=== PATIENT | female | born 1945 | race Caucasian/White ===

== ENCOUNTER 2017-10-31 11:22 | Emergency (ER) | payer OTHER, MEDICARE ==
[~2017-10-31] VITALS: Ht 160 cm; Wt 90.7 kg
[~2017-10-31 11:22] MED LIST: ABILIFY 15MG15 MG PO; ABILIFY10 M1 PO; ADVAIR 250-501 EACH INH; ALBUTEROL2.5 MG/3 M INH/SOL; ALIGN4 MG PO; AMITIZA8 MC1 PO; AMITIZA8 MCG PO; ASPIRIN CHILDRE81 MG PO; BUPROPION HYDR150 M1 PO; CALTRATE 600 +1 EACH PO; CARAFATE1 G1 PO; CLARITIN10 M1 PO; CLONAZEPAM0.5 MG PO; DILAUDID2 M1 PO; DULERA 200 MCG/13 GM INH; FAMILY PHARMAC325 MG PO; FLEXERIL 5MG TAB5 MG PO; GABAPENTIN300 MG PO; HYDROCODON-ACETAMINO PO; IRON SUPPLEMEN325 MG PO; LAMICTAL200 M1 PO; LEXAPRO 10MG10 MG PO; LIORESAL 10MG T10 MG PO; METOPROLOL SUCC50 MG PO; METOPROLOL TART25 M1 PO; NASONEX17 GM NASB; NEXIUM 40MG40 MG PO; NORCO 5-325 TA1 EACH PO; NYSTATIN100000 UNI PO; OS CAL PO; PANTOPRAZOLE SO40 MG PO; PATADAY 2.5 ML2.5 ML OPH; PERCOCET 325 MG1 TA2 PO; PERIDEX473 ML PO; PERIOGARD 473473 ML PO; PRAVASTATIN SOD40 MG PO; PROAIR HFA8.5 GM INH; SPIRIVA18 MCG INH; SUCRALFATE1 GM PO; SYMBICORT 160/41 PUF INH; TAMSULOSIN HCL0.4 M1 PO; TRAVATAN Z5 ML OD; TRAZODONE HCL100 MG PO; VALSARTAN80 M1 PO; VESICARE 5MG5 MG PO; VITAB121000 PO; VOLTAREN100 GM TOP; VSL#3 PACKET1 EACH PO
[2017-10-31 12:33] LABS: ABSOLUTE BASOPHIL COUNT 0 /CUMM (0.0-0.2); ABSOLUTE EOSINOPHIL COUNT 0.2 /CUMM (0.0-0.7); ABSOLUTE GRANULOCYTE CT 10.9 /CUMM (1.4-6.5); ABSOLUTE MONOCYTE COUNT 0.2 /CUMM (0.10-0.60); BASOPHIL % 0.1 % (0.0-2.0); EOSINOPHIL % 1.3 % (0-5); GRANULOCYTE % 88.9 % (42.2-75.2); HEMATOCRIT 31.4 % (37-47); MEAN CORPUSCULAR HGB CONC 33.1 G/DL (33.0-37.0); MEAN CORPUSCULAR VOLUME 84.6 FL (81.0-99.0); MEAN PLATELET VOLUME 6.6 FL (7.4-10.4); PLATELET COUNT 329 /CUMM (130-400); RED BLOOD CELL CT 3.71 /CUMM (4.20-5.40); WHITE BLOOD CELL COUNT 12.3 /CUMM (4.8-10.8)
--- NOTE | 2017-10-31 12:57 | ED INFLUENZA/URI COMPLAINT ---
History of Present Illness General Chief Complaint: General Adult Stated Complaint: SIB DR CHAVES FOR CHEST XRAY AND BLOOD WORK Source: patient, family, old records Exam Limitations: no limitations Vital Signs & Intake/Output Vital Signs & Intake/Output Vital Signs Date Time Temp Pulse Resp B/P B/P Pulse O2 O2 Flow FiO2 Mean Ox Delivery Rate 10/31 1307 95 Nasal 2.0L Cannula 10/31 1248 Nasal 2.0L Cannula 10/31 1129 98.3 75 16 144/77 95 Nasal 2.0L Cannula Allergies Coded Allergies: Penicillins (RASH 01/17/16) aspirin (UNKNOWN 01/17/16) cephalexin (From KEFLEX) (UNKNOWN 01/17/16) codeine (UNKNOWN 01/17/16) latex (RASH 01/17/16) nabumetone (UNKNOWN 01/17/16) Uncoded Allergies: HORSE MEAT (Severe, HIVES 02/03/12) Reconcile Medications Albuterol Sulfate 2.5 MG/3 ML VIAL.NEB 1 Vial INH/ROCIO Q6H PRN SOB/WHEEZE ( Reported) Albuterol Sulfate (Proair Hfa) 8.5 GM HFA.AER.AD 2 PUF INH Q4H PRN COPD ( Reported) Aripiprazole (Abilify) 10 MG TABLET 1 TAB PO DAILY MENTAL HEALTH (Reported) Aspirin (Children's Aspirin) 81 MG TAB.CHEW 1 TAB PO DAILY HEART HEALTH ( Reported) Calcium Carbonate/Vitamin D3 (Caltrate 600 + D Tablet) 1 EACH TABLET 1 TAB PO BID SUPPLEMENT (Reported) Chlorhexidine Gluconate (Peridex) 473 ML MOUTHWASH DENTITION (Reported) Ciprofloxacin HCl (Cipro) 250 MG TABLET 1 TAB PO BID bronchitis Cyanocobalamin (Vitamin B-12) 1,000 MCG TABLET 1 TAB PO DAILY V (Reported) Diclofenac Sodium (Voltaren) 100 GM GEL..GRAM. 1 GM TOP 4 TIMES/DAY JOINTS OF HANDS (Reported) apply to affected area(s) Escitalopram Oxalate (Lexapro 10MG) 10 MG TABLET 1 TAB PO DAILY MENTAL HEALTH (Reported) Ferrous Sulfate (Iron Supplement) 325 MG TABLET 1 TAB PO DAILY SUPPLEMENT ( Reported) Fluticasone/Salmeterol (Advair 250-50 Diskus) 1 EACH BLST.W.DEV 1 PUF INH BID RESPIRATORY (Reported) Gabapentin 300 MG CAPSULE 300 MG PO BID MENTAL HEALTH (Reported) Guaifenesin/Dextromethorphan (Robitussin Cough-Chest Dm Liq) 100 MG-5 MG/5 ML LIQUID 5-10 ML PO Q6P PRN cough Hydrocodone/Acetaminophen ([place] 5-325 Tablet) 1 EACH TABLET 1 TAB PO BID PAIN (Reported) Hydrocodone/Acetaminophen ([place] 5-325 Tablet) 1 EACH TABLET 1-2 TAB PO Q6P PRN PAIN Hydromorphone HCl (Dilaudid) 2 MG TABLET 1 TAB PO BIDP PRN RIB FX Lactobac #2-S. Therm-Bifido #1 (Vsl#3 Packet) 1 EACH PACKET 1 PAC PO DAILY CALORIC AGENT (Reported) Lamotrigine (Lamictal) 200 MG TABLET 1 TAB PO BID ANTICONVULSANT (Reported) Loratadine (Claritin) 10 MG TABLET 1 TAB PO DAILY ALLERGIES (Reported) Lubiprostone (Amitiza) 8 MCG CAPSULE 1 CAP PO BID GI (Reported) Metoprolol Tartrate 25 MG TABLET 1 TAB PO BID HEART/BP (Reported) Mometasone Furoate (Nasonex) 17 GM SPRAY.PUMP 2 SPRAY NASB QPM NASAL CONGESTION (Reported) Mometasone/Formoterol (Dulera 200 Mcg/5 Mcg Inhaler) 13 GM HFA.AER.AD 2 PUF INH BID RESPIRATORY (Reported) Nystatin 100,000 UNIT/1 ML ORAL.SUSP 5 ML PO 4 TIMES/DAY POLYENES (Reported) Pantoprazole Sodium 40 MG TABLET.DR 40 MG PO DAILY GERD (Reported) Pravastatin Sodium 40 MG TABLET 40 MG PO DAILY CHOL (Reported) Prednisone 20 MG TABLET 1 TAB PO BID copd exacerbation Sucralfate (Carafate) 1 GM TABLET 1 TAB PO TID GI (Reported) Tamsulosin HCl 0.4 MG CAP.ER.24H 1 CAP PO QPM OVERACTIVE BLADDER (Reported) Tiotropium [place] (Spiriva) 18 MCG CAP.W.DEV 1 CAP INH DAILY COPD (Reported) Travoprost (Travatan Z) 5 ML DROPS 1 GTT OD QPM RIGHT EYE (Reported) Valsartan 80 MG TABLET 1 TAB PO DAILY BP (Reported) Triage Note: 72 REPORTS COUGH WITH GREEN PHLEGM, CONGESTION, AND INTERMITTENT HEADACHES. HX LUNG CA AND STATES SHE WAS ADVISED TO GET AN XRAY ANYTIME SHE GETS SICK. BASELINE 2L OXYGEN, SAT 95%. AFEBRILE Triage Nurses Notes Reviewed? yes Onset: Last week Duration: day(s):, continues in ED, getting worse Timing: recent history Severity: moderate Prior Episodes/Possible Cause: illness exposure Modifying Factors: Improves With: rest. Worsens With: movement. Associated Symptoms: cough, nasal congestion, shortness of breath, sore throat, wheezing LMP (ages 10-50): post menopausal : No Patient currently breastfeeds: No HPI: Several days prior to admission patient complains of productive cough of green sputum nasal congestion increasing shortness of breath with wheezing. She denies fever chills nausea vomiting diarrhea chest pain headache dysuria rash bleeding. Past History Travel History Traveled to [place] past 21 day No Medical History Any Pertinent Medical History? see below for history Neurological: migraine EENT: sinusitis Cardiovascular: myocardial infarction Respiratory: asthma, LUNG CA Gastrointestinal: irritable bowel syndrome Hepatic: NONE Renal: NONE Musculoskeletal: R KNEE REPLACEMENT Psychiatric: bipolar disease Endocrine: diabetes Cancer(s): L LUNG Tetanus Vaccine: 01/17/16 Surgical History Surgical History: non-contributory Psychosocial History Who do you live with Significant Other Services at Home Nursing What is your primary language Vietnamese Tobacco Use: Quit >30 days ago Family History Hx Contributory? No Review of Systems Review of Systems Constitutional: Reports: see HPI. EENTM: Reports: see HPI, nasal congestion, throat pain. Respiratory: Reports: see HPI, cough, short of breath, sputum production, wheezing. Cardiovascular: Reports: no symptoms. GI: Reports: no symptoms. Genitourinary: Reports: no symptoms. Musculoskeletal: Reports: no symptoms. Skin: Reports: no symptoms. Neurological/Psychological: Reports: no symptoms. Hematologic/Endocrine: Reports: no symptoms. Immunologic/Allergic: Reports: no symptoms. All Other Systems: Reviewed and Negative Physical Exam Physical Exam General Appearance: well developed/nourished, alert, awake, anxious, moderate distress, obese Head: atraumatic, normal appearance Eyes: Bilateral: normal appearance, PERRL, EOMI. Ears, Nose, Throat: moist mucous membrane, nasal congestion, nasal drainage, pharyngeal erythema Neck: normal inspection, supple, full range of motion, trachea midline, lymphadenopathy (R), lymphadenopathy (L) Respiratory: chest non-tender, decreased breath sounds, wheezing, respiratory distress (Mild) Cardiovascular: regular rate/rhythm, normal peripheral pulses, norml femoral pulses equa Peripheral Pulses: 4+ carotid (R), 4+ carotid (L) Gastrointestinal: normal bowel sounds, soft, non-tender, no organomegaly Back: normal inspection, normal range of motion, no vertebral tenderness Extremities: normal inspection, normal capillary refill, normal range of motion, no edema, no ligament instability Neurologic/Psych: no motor/sensory deficits, awake, alert, oriented x 3, normal gait, normal mood/affect, social media editor II-XII nml as tested Reflexes: 2+: bicep (R), bicep (L). Skin: intact, normal color, warm/dry Lymphatic: adenopathy Core Measures Sepsis Present: No Sepsis Focused Exam Completed? No Progress Differential Diagnosis: influenza, pneumonia, sinusitis Plan of Care: Orders Procedure Date/time Status TROPONIN LEVEL 10/31 1135 Complete MAGNESIUM 10/31 1135 Complete COMPREHENSIVE METABOLIC PANEL 10/31 1135 Complete CBC WITHOUT DIFFERENTIAL 10/31 113 Complete B-TYPE NATRIURETIC PEP (BNP) 10/31 113 Complete Laboratory Tests 10/31/17 1218: Anion Gap 13, Estimated GFR > 60, BUN/Creatinine Ratio 14.3, Glucose 134 H, Calcium 9.1, Magnesium 2.1, Total Bilirubin 0.3, AST 16, ALT 24, Alkaline Phosphatase 84, Troponin I < 0.01, Kmt-S-Tktygbesdun Pept 870 H, Total Protein 6.7, Albumin 3.7, Globulin 3.0, Albumin/Globulin Ratio 1.2, CBC w Diff MAN DIFF ORDERED, RBC 3.71 L, MCV 84.6, MCH 28.0, MCHC 33.1, RDW 15.0 H, MPV 6.6 L, Gran % 88.9 H, Lymphocytes % 8.0 L, Monocytes % 1.7, Eosinophils % 1.3, Basophils % 0.1, Absolute Granulocytes 10.9 H, Absolute Lymphocytes 1.0 L, Absolute Monocytes 0.2, Absolute Eosinophils 0.2, Absolute Basophils 0, Platelet Estimate ADEQUATE, Hypochromic-Microcytic 1+, Anisocytosis 1+ Diagnostic Imaging: Viewed by Me: Radiology Read. Discussed w/RAD: Radiology Read. CXR Impression: No appreciable change in left upper lobe lesion from most recent exams December 2016. No evidence of pneumonia. Stable enlargement of the cardiac silhouette. Initial ED EKG: none Departure Departure Time of Disposition: 1400 Disposition: HOME OR SELF CARE Condition: Stable Clinical Impression Primary Impression: COPD with acute bronchitis Referrals: Aden Cullen MD (PCP/Family) Departure Forms: Customer Survey General Discharge Information Prescriptions: Current Visit Scripts Prednisone 1 TAB PO BID #10 TAB Ciprofloxacin HCl (Cipro) 1 TAB PO BID #14 TAB Guaifenesin/Dextromethorphan (Robitussin Cough-Chest Dm Liq) 5-10 ML PO Q6P PRN cough #240 ML
--- NOTE | 2017-10-31 13:19 | RADIOLOGY REPORT ---
EXAMINATION: XR CHEST CLINICAL INFORMATION: Cough. Shortness of breath. History of lung cancer. COMPARISON: Previous chest x-rays and chest CT scan December 2016 TECHNIQUE: 2 views of the chest were obtained. FINDINGS: The cardiac silhouette is enlarged but stable. There is no appreciable change in the lesion in the central left upper lobe extending to the hilum from previous exams. The lungs are otherwise clear. No evidence of a pneumonia is seen. There is no pleural effusion. There is a right internal jugular port with tip projecting over the cavoatrial junction. There are degenerative changes of the spine. IMPRESSION: No appreciable change in left upper lobe lesion from most recent exams December 2016. No evidence of pneumonia. Stable enlargement of the cardiac silhouette.
[2017-10-31] MEDS ORDERED: CIPRO250 M1 PO (13:29)
[2017-10-31] MEDS ORDERED: PREDNISONE20 M1 PO (13:29)
[2017-10-31] MEDS ORDERED: ROBITUSSIN COU237 M1 PO (13:30)
[2017-10-31 16:03] VITALS: BP 162/71
== END 2017-10-31 16:18 ==
LOC: ERH 11:22
PROVIDERS: Emergency Medicine
DX: J44.0 Chronic obstructive pulmonary disease with (acute) lower respiratory infection (principal); Z87.891 Personal history of nicotine dependence
CPT/HCPCS: 71046; 96374; 96375; J0744; J2930

== ENCOUNTER 2018-01-30 08:30 | Inpatient (IN) | payer OTHER, MEDICARE ==
[~2018-01-30] VITALS: Ht 162.6 cm; Wt 92.5 kg
[~2018-01-30 08:30] MED LIST changes: +CIPRO250 M1 PO; +PREDNISONE20 M1 PO; +ROBITUSSIN COU237 M1 PO
--- NOTE | 2018-01-30 08:38 | ED DYSPNEA/ASTHMA COMPLAINT ---
History of Present Illness General Chief Complaint: Dyspnea (COPD, CHF, Other) Stated Complaint: RESPITORY DISTRESS Source: patient Exam Limitations: clinical condition Vital Signs & Intake/Output Vital Signs & Intake/Output Vital Signs Date Time Temp Pulse Resp B/P B/P Pulse O2 O2 Flow FiO2 Mean Ox Delivery Rate 02/03 1042 99 Nasal 2.0L Cannula 02/03 0945 75 138/68 02/03 0945 75 138/68 02/03 0800 Nasal 2.0L Cannula 02/03 0635 98.1 71 18 112/68 92 Room Air 02/03 0000 Nasal 2.0L Cannula 02/02 2205 97.6 68 20 102/58 98 Nasal Cannula 02/02 2033 64 102/58 02/02 2032 64 102/58 02/02 2018 96 Nasal 2.0L Cannula 02/02 1802 75 100/60 02/02 1700 91 100/60 02/02 1600 Nasal 2.0L Cannula 02/02 1436 97.7 74 18 118/64 97 Room Air ED Intake and Output 02/03 0000 02/02 1200 Intake Total 1050 120 Output Total 1050 500 Balance 0 -380 Intake, Oral 1050 120 Output, Urine 1050 500 Patient 204 lb Weight Weight Bed scale Measurement Method Allergies Coded Allergies: Penicillins (RASH 01/17/16) aspirin (UNKNOWN 01/17/16) cephalexin (From KEFLEX) (UNKNOWN 01/17/16) codeine (UNKNOWN 01/17/16) latex (RASH 01/17/16) nabumetone (UNKNOWN 01/17/16) Uncoded Allergies: HORSE MEAT (Severe, HIVES 02/03/12) Reconcile Medications Albuterol Sulfate 2.5 MG/3 ML VIAL.NEB 1 Vial INH/ROCIO Q6H PRN SOB/WHEEZE ( Reported) Albuterol Sulfate (Proair Hfa) 8.5 GM HFA.AER.AD 2 PUF INH Q4H PRN COPD ( Reported) Aripiprazole (Abilify) 10 MG TABLET 1 TAB PO DAILY MENTAL HEALTH (Reported) Aspirin (Children's Aspirin) 81 MG TAB.CHEW 1 TAB PO DAILY HEART HEALTH ( Reported) Calcium Carbonate/Vitamin D3 (Caltrate 600 + D Tablet) 1 EACH TABLET 1 TAB PO BID SUPPLEMENT (Reported) Chlorhexidine Gluconate (Peridex) 473 ML MOUTHWASH DENTITION (Reported) Cyanocobalamin (Vitamin B-12) 1,000 MCG TABLET 1 TAB PO DAILY V (Reported) Diclofenac Sodium (Voltaren) 100 GM GEL..GRAM. 1 GM TOP 4 TIMES/DAY JOINTS OF HANDS (Reported) apply to affected area(s) Escitalopram Oxalate (Lexapro 10MG) 10 MG TABLET 1 TAB PO DAILY MENTAL HEALTH (Reported) Ferrous Sulfate (Iron Supplement) 325 MG TABLET 1 TAB PO DAILY SUPPLEMENT ( Reported) Fluticasone/Salmeterol (Advair 250-50 Diskus) 1 EACH BLST.W.DEV 1 PUF INH BID RESPIRATORY (Reported) Furosemide 40 MG TABLET 1 TAB PO BID fluid Gabapentin 300 MG CAPSULE 300 MG PO BID MENTAL HEALTH (Reported) Guaifenesin/Dextromethorphan (Robitussin Cough-Chest Dm Liq) 100 MG-5 MG/5 ML LIQUID 5-10 ML PO Q6P PRN cough Hydrocodone/Acetaminophen ([place] 5-325 Tablet) 1 EACH TABLET 1-2 TAB PO Q6P PRN PAIN Hydromorphone HCl (Dilaudid) 2 MG TABLET 1 TAB PO BIDP PRN RIB FX Lactobac #2-S. Therm-Bifido #1 (Vsl#3 Packet) 1 EACH PACKET 1 PAC PO DAILY CALORIC AGENT (Reported) Lamotrigine (Lamictal) 200 MG TABLET 1 TAB PO BID ANTICONVULSANT (Reported) Loratadine (Claritin) 10 MG TABLET 1 TAB PO DAILY ALLERGIES (Reported) Lubiprostone (Amitiza) 8 MCG CAPSULE 1 CAP PO BID GI (Reported) Metoprolol Tartrate 25 MG TABLET 1 TAB PO BID HEART/BP (Reported) Mometasone Furoate (Nasonex) 17 GM SPRAY.PUMP 2 SPRAY NASB QPM NASAL CONGESTION (Reported) Mometasone/Formoterol (Dulera 200 Mcg/5 Mcg Inhaler) 13 GM HFA.AER.AD 2 PUF INH BID RESPIRATORY (Reported) Nystatin 100,000 UNIT/1 ML ORAL.SUSP 5 ML PO 4 TIMES/DAY POLYENES (Reported) Pantoprazole Sodium 40 MG TABLET.DR 40 MG PO DAILY GERD (Reported) Pravastatin Sodium 40 MG TABLET 40 MG PO DAILY CHOL (Reported) Prednisone 20 MG TABLET 1 TAB PO BID copd exacerbation Sucralfate (Carafate) 1 GM TABLET 1 TAB PO TID GI (Reported) Tamsulosin HCl 0.4 MG CAP.ER.24H 1 CAP PO QPM OVERACTIVE BLADDER (Reported) Tiotropium [place] (Spiriva) 18 MCG CAP.W.DEV 1 CAP INH DAILY COPD (Reported) Travoprost (Travatan Z) 5 ML DROPS 1 GTT OD QPM RIGHT EYE (Reported) Valsartan 80 MG TABLET 1 TAB PO DAILY BP (Reported) Triage Nurses Notes Reviewed? yes HPI: Patient presents for evaluation of severe dyspnea. According to the paramedics she was found on the floor in severe distress. She was administered a DuoNeb and was placed on CPAP with some improvement. Past History Travel History Traveled to [place] past 21 day No Medical History Any Pertinent Medical History? see below for history Neurological: migraine EENT: sinusitis Cardiovascular: myocardial infarction Respiratory: asthma, LUNG CA Gastrointestinal: irritable bowel syndrome Hepatic: NONE Renal: NONE Musculoskeletal: R KNEE REPLACEMENT Psychiatric: bipolar disease Endocrine: diabetes Cancer(s): L LUNG Tetanus Vaccine: 01/17/16 Surgical History Surgical History: non-contributory Psychosocial History Who do you live with Significant Other Services at Home Nursing What is your primary language Peruvian Family History Hx Contributory? No Review of Systems Review of Systems Constitutional: Reports: no symptoms. EENTM: Reports: no symptoms. Respiratory: Reports: see HPI. Cardiovascular: Reports: no symptoms. GI: Reports: no symptoms. Genitourinary: Reports: no symptoms. Musculoskeletal: Reports: no symptoms. Skin: Reports: no symptoms. Neurological/Psychological: Reports: no symptoms. Hematologic/Endocrine: Reports: no symptoms. Immunologic/Allergic: Reports: no symptoms. All Other Systems: Reviewed and Negative Physical Exam Physical Exam Respiratory: see below Comments: Gen.: Well-nourished, well-developed, severe respiratory distress. Head: Normocephalic, atraumatic. Eyes: Normal inspection bilaterally Ears: Normal inspection bilaterally Nose: Normal inspection Throat/mouth : Moist mucosa Neck: Supple, full range of motion, no goiter Heart: Regular rate and rhythm, no murmurs rubs or gallops Lungs: Decreased air entry bilaterally with pain expiratory wheezing, no rales or rhonchi Chest: Nontender Back: Normal range of motion Abdomen: Soft, nontender, nondistended, normal bowel sounds Extremities: Normal range of motion grossly, equal radial pulses, no cyanosis, 1 + bilateral pitting edema of the lower extremities Neurologic: Cranial nerves grossly intact, speech is clear Skin: warm and dry Psychiatric: Calm, cooperative, no apparent delusions or hallucinations Core Measures ACS in differential dx? No CVA/TIA Diagnosis No Sepsis Present: No Sepsis Focused Exam Completed? No Progress Differential Diagnosis: AMI, bronchitis, CHF, COPD, pneumonia, pneumothorax, unstable angina Plan of Care: Orders Procedure Date/time Status AEROSOL CHG 02/02 UNK Complete OXYGEN 02/02 UNK Complete OXYGEN DAILY CHARGE 02/02 UNK Complete Current Medications Sig/Ayaz Start time Last Medication Dose Stop Time Status Admin Furosemide 40 MG DAILY 02/03 0900 AC 02/03 (Lasix) 0941 Benzocaine 1 VEE Q4 HRS NEEDED PRN 02/02 2115 AC 02/03 (Anbesol) 0548 Prednisone 40 MG DAILY 02/02 0900 AC 02/03 0942 Hydrocodone Bitart/ 1 TAB ONCE PRN 02/01 0215 AC 02/01 Acetaminophen 0222 (Vicodin) Albuterol Sulfate 3 ML BID 01/31 2100 AC 02/03 (Proventil) 1041 Atorvastatin Calcium 10 MG 1700 01/31 1700 AC 02/02 (Lipitor) 1702 Aripiprazole 10 MG DAILY 01/31 0900 AC 02/03 (Abilify) 0940 Calcium/Vitamin D 500 MG DAILY 01/31 0900 AC 02/03 (Oscal-D 500MG 0942 ([place] Shell)) Escitalopram Oxalate 10 MG DAILY 01/31 0900 AC 02/03 (Lexapro) 0941 Ferrous Sulfate 325 MG DAILY 01/31 0900 AC 02/03 (Feosol) 0941 Loratadine 10 MG DAILY 01/31 0900 AC 02/03 (Claritin) 0941 Losartan Potassium 50 MG DAILY 01/31 0900 AC 02/03 (Cozaar) 0945 Tiotropium [place] 1 PUF DAILY 01/31 0900 AC 02/03 (Spiriva) 0947 Insulin Aspart 0 TIDAC 01/31 0800 AC 02/02 (NovoLOG) 1725 Omeprazole 40 MG DAILY AC 01/31 0700 AC 02/03 (Prilosec) 0548 Trazodone HCl 100 MG AT BEDTIME NEED.. 01/31 0030 AC 02/02 (Desyrel) 1038 Gabapentin 300 MG BID 01/30 2100 AC 02/03 (Neurontin) 0941 Lamotrigine 200 MG BID 01/30 2100 AC 02/03 (LaMICtal) 0941 Latanoprost 1 GTT AT BEDTIME 01/30 2100 AC 02/02 (Xalatan) 2032 Lubiprostone 8 MCG BID 01/30 2100 AC 02/03 (Amitiza) 0940 Metoprolol Tartrate 25 MG BID 01/30 2100 AC 02/03 (Lopressor) 0945 Sodium Chloride 2 SPRAY BID 01/30 2100 AC 02/03 (Nasal) 0939 Sucralfate 1,000 MG TID 01/30 2100 AC 02/03 (Carafate) 0940 Tamsulosin HCl 0.4 MG QPM 01/30 2100 AC 02/02 (Flomax) 203 Nystatin 5 ML 4 TIMES/DAY 01/30 182 AC 02/03 (Mycostatin Susp) 0939 Diclofenac Sodium 1 VEE 4 TIMES/DAY 01/30 181 AC 02/03 (Voltaren 1% Gel) 0937 Albuterol Sulfate 2 PUF Q4H PRN 01/30 181 AC (Ventolin) Cyanocobalamin 1,000 MCG DAILY 01/30 181 AC 02/03 (Vitamin B12) 0940 Enoxaparin Sodium 40 MG DAILY 01/30 1808 AC 02/03 (Lovenox) 0947 Diagnostic Imaging: Discussed w/RAD: Radiology Read. CXR Impression: PATIENT: LUCIA SINGER PRESENT AGE: 72 PATIENT ACCOUNT NO: [id number] : 47 LOCATION: [facility] ORDERING PHYSICIAN: Myron Crook MD SERVICE DATE: 01/30/18 EXAM TYPE: RAD - XRY-PORTABLE CHEST XRAY EXAMINATION: XR PORTABLE CHEST CLINICAL INFORMATION: Dyspnea. Wheezing. COMPARISON: CXR from 10/31/2017 TECHNIQUE: Portable frontal view of the chest was obtained. FINDINGS: There is a right chest wall medication port with IJ catheter terminating in the region of junction of the superior vena cava and right atrium. Patient is slightly rotated into a left posterior oblique position. Cardiac silhouette is mildly enlarged. The opacity in the perihilar region of the left upper lobe is similar in appearance compared to 12/11/2016. Compared to the chest radiograph of 10/31/2017, interval development of diffuse, nonspecific interstitial opacity associated with increased haziness in mid and lower lung zones. However, no overt pleural effusion. No pneumothorax or other significant interval change. IMPRESSION: - Mild cardiomegaly. - Diffuse, nonspecific interstitial opacity in both lungs is new compared to 10/31/2017. This could represent cardiogenic pulmonary edema. However, airway inflammation with multilobar pneumonitis could have a similar appearance. - The left upper lobe opacity from infiltrative lesion, atelectasis and/or fibrosis remains similar in appearance compared to 12/11/2016. DICTATED BY: Gallo Lofton MD DATE/TIME DICTATED:01/30/18920 RESIDENT CARE DIRECTOR:VAMSHI DATE/TIME TRANSCRIBED:01/30/18920 CONFIDENTIAL, DO NOT COPY WITHOUT APPROPRIATE AUTHORIZATION. <Electronically signed in Other Vendor System> PATIENT: LUCIA SINGER PRESENT AGE: 72 PATIENT ACCOUNT NO: [id number] : 47 LOCATION: [facility] ORDERING PHYSICIAN: Myron Crook MD SERVICE DATE: 01/30/18 EXAM TYPE : RAD - XRY-PORTABLE CHEST XRAY EXAMINATION: XR PORTABLE CHEST CLINICAL INFORMATION: Dyspnea. Wheezing. COMPARISON: CXR from 10/31/2017 TECHNIQUE: Portable frontal view of the chest was obtained. FINDINGS: There is a right chest wall medication port with IJ catheter terminating in the region of junction of the superior vena cava and right atrium. Patient is slightly rotated into a left posterior oblique position. Cardiac silhouette is mildly enlarged. The opacity in the perihilar region of the left upper lobe is similar in appearance compared to 12/11/2016. Compared to the chest radiograph of 2017, interval development of diffuse, nonspecific interstitial opacity associated with increased haziness in mid and lower lung zones. However, no overt pleural effusion. No pneumothorax or other significant interval change. IMPRESSION: - Mild cardiomegaly. - Diffuse, nonspecific interstitial opacity in both lungs is new compared to 10/31/2017. This could represent cardiogenic pulmonary edema. However, airway inflammation with multilobar pneumonitis could have a similar appearance. - The left upper lobe opacity from infiltrative lesion, atelectasis and/or fibrosis remains similar in appearance compared to . DICTATED BY: Gallo Lofton MD DATE/TIME DICTATED:01/30/18920 RESIDENT CARE DIRECTOR:VAMSHI DATE/TIME TRANSCRIBED:01/30/18920 CONFIDENTIAL, DO NOT COPY WITHOUT APPROPRIATE AUTHORIZATION. <Electronically signed in Other Vendor System> SIGNED BY: Gallo Lofton MD 01/30/18 0938 Initial ED EKG: sinus tachy Comments: Respiratory contacted regarding BiPAP and additional nebulizer treatments. 01/30/2018 8:43:23 AM patient is being converted to a BiPAP mask. She is hypertensive so I will order nitroglycerin and Lasix to control blood pressure and given her history of prior CHF. 01/30/2018 9:01:48 AM Lucia appears much more comfortable clinically. She is alert and answers questions readily. She states she feels "much better" than upon presentation. Her oxygen saturation is 97% on BiPAP. Departure Departure Disposition: STILL A PATIENT Condition: Stable Clinical Impression Primary Impression: CHF (congestive heart failure) Qualifiers: Heart failure type: unspecified Heart failure chronicity: acute Qualified Code: I50.9 - Heart failure, unspecified Secondary Impressions: COPD exacerbation Referrals: Aden Cullen MD (PCP/Family) Departure Forms: Customer Survey General Discharge Information Prescriptions: Current Visit Scripts Furosemide 1 TAB PO BID #60 TAB Admission Note Spoke With: Aden Cullen MD Documentation of Exam: Documentation of any treatments & extenuating circumstances including Concerns Regarding Discharge (functional status, medication knowledge or non-compliance, living conditions, etc.) that warrant an admission rather than observation: Patient presented to the emergency department in extreme respiratory distress on the verge of respiratory arrest. Fortunately the patient has responded well to BiPAP and an aggressive management with inhaled bronchodilators (to treat COPD/ asthma), parenteral and IV Lasix (to treat congestive heart failure). However the patient is still requiring high levels support with a BiPAP mask. I feel she requires hospitalization for continued BiPAP and weaning as tolerated. In addition the patient should have serial EKGs and troponins to rule out underlying cardiac disease. Patient should received inhaled bronchodilators and IV steroids to treat an acute COPD exacerbation. The patient should receive treatment with nitroglycerin and diuretics to treat the congestive heart failure. Pulmonary and cardiology consultation should be considered. Patient's medication regimen should be reviewed and optimized. Given the patient's advanced age and medical comorbidities I feel her treatment will be prolonged and complicated. She will require a multiple day hospitalization. Critical Care Note Critical Care Note Critical Care Time: 30-74 min
[2018-01-30 09:05] LABS: ABSOLUTE BASOPHIL COUNT 0 /CUMM (0.0-0.2); ABSOLUTE EOSINOPHIL COUNT 0.3 /CUMM (0.0-0.7); ABSOLUTE GRANULOCYTE CT 15.2 /CUMM (1.4-6.5); ABSOLUTE LYMPH COUNT 1.6 /CUMM (1.2-3.4); ABSOLUTE MONOCYTE COUNT 0.3 /CUMM (0.10-0.60); BASOPHIL % 0.1 % (0.0-2.0); EOSINOPHIL % 1.6 % (0-5); GRANULOCYTE % 87.2 % (42.2-75.2); HEMATOCRIT 34.1 % (37-47); MEAN CORPUSCULAR HGB 28.2 PG (27.0-31.0); MEAN CORPUSCULAR HGB CONC 33.7 G/DL (33.0-37.0); MEAN CORPUSCULAR VOLUME 83.7 FL (81.0-99.0); MEAN PLATELET VOLUME 6.8 FL (7.4-10.4); PLATELET COUNT 480 /CUMM (130-400); RBC DISTRIBUTION WIDTH 15.5 % (11.5-14.5); RED BLOOD CELL CT 4.08 /CUMM (4.20-5.40); WHITE BLOOD CELL COUNT 17.4 /CUMM (4.8-10.8)
--- NOTE | 2018-01-30 09:38 | RADIOLOGY REPORT ---
EXAMINATION: XR PORTABLE CHEST CLINICAL INFORMATION: Dyspnea. Wheezing. COMPARISON: CXR from 10/31/2017 TECHNIQUE: Portable frontal view of the chest was obtained. FINDINGS: There is a right chest wall medication port with IJ catheter terminating in the region of junction of the superior vena cava and right atrium. Patient is slightly rotated into a left posterior oblique position. Cardiac silhouette is mildly enlarged. The opacity in the perihilar region of the left upper lobe is similar in appearance compared to 12/11/2016. Compared to the chest radiograph of 10/31/2017, interval development of diffuse, nonspecific interstitial opacity associated with increased haziness in mid and lower lung zones. However, no overt pleural effusion. No pneumothorax or other significant interval change. IMPRESSION: - Mild cardiomegaly. - Diffuse, nonspecific interstitial opacity in both lungs is new compared to 10/31/2017. This could represent cardiogenic pulmonary edema. However, airway inflammation with multilobar pneumonitis could have a similar appearance. - The left upper lobe opacity from infiltrative lesion, atelectasis and/or fibrosis remains similar in appearance compared to 12/11/2016.
--- NOTE | 2018-01-30 13:04 | Admission Certification ---
Admission Certification Certification Statement - As attending physician, I certify that at the time of - admission, based on clinical presentation, severity of - symptoms, need for further diagnostic testing and - therapeutic interventions, and risk of adverse outcomes - without in-hospital treatment, in my clinical assessment, - this patient requires an acute hospital stay for a minimum - of two nights or longer. I have also considered psychsocial - factors such as support system, advanced age, financial - issues, cognitive issues, and failed out-patient treatments, - past re-admission history, safety of patient, and lack of - compliance as applicable. Specific rationale supporting this admission is: Severe shortness of breath patient with chronic lung disease lung cancer. Probable congestive heart failure by x-ray
--- NOTE | 2018-01-30 13:09 | PN- Att Addend ---
Attending Addendum Attending Brief Note 72-year-old female with history of lung cancer and COPD.72-year-old female with history of lung cancer and COPD. Has been has been complaining of some increased short EMS was called and they found the patient on the floor in severe respiratory distress. Patient was brought into the emergency room was given a DuoNeb treatment and with BiPAP with some improvement of the symptoms. The chest x-ray showed her known lesion in the lung and increased vascular margins which could be either congestive heart failure or infiltrates . Patient is admitted for evaluation and treatment . Current Medications Sig/Ayaz Start time Last Medication Dose Route Stop Time Status Admin Albuterol Sulfate 3 ML ONCE ONE 01/30 845 DC 01/30 INH 01/30 846 0848 Furosemide 0 .STK-MED ONE 01/30 846 DC IV Furosemide 40 MG ONCE ONE 01/30 845 DC 01/30 IV PUSH 01/31 0846 0911 Ipratropium [place] 2.5 ML ONCE ONE 01/30 845 DC 01/30 INH 01/30 846 0848 Methylprednisolone 125 MG ONCE ONE 01/30 845 DC 01/30 IV 01/31 0846 0911 Methylprednisolone 0 .STK-MED ONE 01/30 0835 DC .ROUTE Nitroglycerin 0 .STK-MED ONE 01/30 846 DC TOP Nitroglycerin 1 GM ONCE ONE 01/30 845 DC 01/30 TOP 01/30 0846 0911 Laboratory Tests 01/30/18 0851: Anion Gap 9, Estimated GFR > 60, BUN/Creatinine Ratio 15.0, Glucose 234 H, Calcium 8.5, Troponin I 0.05, CBC w Diff MAN DIFF ORDERED, RBC 4.08 L, MCV 83.7 , MCH 28.2, MCHC 33.7, RDW 15.5 H, MPV 6.8 L, Gran % 87.2 H, Lymphocytes % 9.5 L, Monocytes % 1.6 L, Eosinophils % 1.6, Basophils % 0.1, Absolute Granulocytes 15.2 H, Segmented Neutrophils 80 H, Band Neutrophils 5, Absolute Lymphocytes 1.6, Lymphocytes 11 L, Monocytes 1 L, Absolute Monocytes 0.3, Eosinophils 3, Absolute Eosinophils 0.3, Absolute Basophils 0, Platelet Estimate INCREASED, Hypochromic-Microcytic 1+ Vital Signs Date Time Temp Pulse Resp B/P B/P Pulse O2 O2 Flow FiO2 Mean Ox Delivery Rate 01/30 1210 98.2 80 17 153/74 94 BIPAP 5.0L 01/30 1207 77 95 01/30 0914 94 29 161/77 100 BIPAP 50% 01/30 0850 110 98 01/30 0848 100 BIPAP 50% 01/30 0840 89 CPAP 100% 01/30 0840 97.2 133 32 216/100 89 BIPAP Intake & Output 01/30 1600 Intake Total Output Total 1100 Balance -1100 Output, Urine 1100 Patient 211 lb Weight Weight Bed scale Measurement Method White count is elevated.White count is elevated. Will get cardiology and pulmonary consults .
--- NOTE | 2018-01-30 14:33 | History & Physical ---
General Information and [facility] MD Statement: I have seen and personally examined EDDIE SINGER and documented this H&P. The patient is a 72 year old F who presented with a patient stated chief complaint of respiratory distress Source of Information: patient, family, old records Exam Limitations: no limitations History of Present Illness: This is a 72-year-old female with a past medical history significant for COPD, retention, migraines, GERD, diabetes, bipolar disorder, myocardial infarction in 2007, asthma, lung cancer diagnosed in 2015 status post chemotherapy and radiation, irritable bowel syndrome, osteoarthritis status post right knee replacement, glaucoma, cataract surgery right eye that is brought in by ambulance for recent worsening respiratory status with a recent severe episode of respiratory distress. History was taken from the patient and her ex- whom she lives with. The patient states that she has had worsening of her shortness of breath recently to the point where she cannot talk and breathe at the same time. She states that the shortness of breath got so bad today that she began to have numbness in her hands that spread into her arms and legs requiring her to sit down on the floor. She denies falling or loss of consciousness. The patient is on 2 L of home oxygen throughout the day and night, does not use CPAP. She uses albuterol and Spiriva at home. Recently she has required several pillows when she sleeps and becomes winded even on minor exertion. She notes mild to moderate lower extremity edema. The patient sees Dr. Vanegas, senior information developer in [place] and Dr. Krause, oncologist at [facility]. She had lung cancer 3 years ago, left lung, status post chemotherapy and radiation. The patient states that the tumor size to trend that her doctors told her the only way to get rid of it would be to remove her entire lung which would compromise her respiratory status greatly. Apparently, the patient has a new lesion found in the right side that she is currently having worked up by her senior information developer. The patient has been coughing more lately and states that it feels as if phlegm is stuck in her throat for the past 2 weeks. She states that she has sharp chest pain when she inhales, mostly at the left ribs. The patient states that she has been having fever and night sweats for months. She denies any weight loss. She denies any long periods of immobility. The patient sees Dr. Burgos as her banker mason, states that she had a normal stress test and echo fairly recently, although there are no records of these in our system. The patient does have history of smoking but quit "many years ago". The patient states that she has a strong history of chronic migraines and has been getting migraines more often. She usually takes [place] 5/325 twice a day when necessary for these, requiring it about 2 times a week, as well as Lamictal. She sees a neurologist Dr. Alejandra. The patient has a history of bipolar disorder and states that she had a suicide attempt by overdosing on aspirin years ago. Currently she takes Abilify 10 mg daily for mental health reasons. She states that she does have a psychiatrist but cannot recall the name. He states that after overdosing on aspirin, she had severe GI bleeding, does not currently follow up with a GI doctor. For this reason, she can no longer take aspirin. She does not currently complain of any GI bleed. The patient also states that she has been more dizzy recently, has dizzy spells about 3 times per week for the last month on standing. She denies any recent visual or auditory changes. Patient does note a 6 day history of tremors and stuttering. She attributes it to her shortness of breath and states "I can't breathe when I try to talk and it makes me shake". The patient denies any nausea and vomiting, diarrhea. She does admit to constipation recently which is mostly normal for her. Denies any urinary symptoms. The patient lives her ex- in a house in [place]. Her children live nearby. She ambulates independently. The patient has a home health aide that comes on Tuesday and and helps her with various tasks including organizing her medications. Allergies/Medications Allergies: Coded Allergies: Penicillins (RASH 01/17/16) aspirin (UNKNOWN 01/17/16) cephalexin (From KEFLEX) (UNKNOWN 01/17/16) codeine (UNKNOWN 01/17/16) latex (RASH 01/17/16) nabumetone (UNKNOWN 01/17/16) Uncoded Allergies: HORSE MEAT (Severe, HIVES 02/03/12) Home Med list Albuterol Sulfate 2.5 MG/3 ML VIAL.NEB 1 Vial INH/ROCIO Q6H PRN SOB/WHEEZE ( Reported) Albuterol Sulfate (Proair Hfa) 8.5 GM HFA.AER.AD 2 PUF INH Q4H PRN COPD ( Reported) Aripiprazole (Abilify) 10 MG TABLET 1 TAB PO DAILY MENTAL HEALTH (Reported) Aspirin (Children's Aspirin) 81 MG TAB.CHEW 1 TAB PO DAILY HEART HEALTH ( Reported) Calcium Carbonate/Vitamin D3 (Caltrate 600 + D Tablet) 1 EACH TABLET 1 TAB PO BID SUPPLEMENT (Reported) Chlorhexidine Gluconate (Peridex) 473 ML MOUTHWASH DENTITION (Reported) Cyanocobalamin (Vitamin B-12) 1,000 MCG TABLET 1 TAB PO DAILY V (Reported) Diclofenac Sodium (Voltaren) 100 GM GEL..GRAM. 1 GM TOP 4 TIMES/DAY JOINTS OF HANDS (Reported) apply to affected area(s) Escitalopram Oxalate (Lexapro 10MG) 10 MG TABLET 1 TAB PO DAILY MENTAL HEALTH (Reported) Ferrous Sulfate (Iron Supplement) 325 MG TABLET 1 TAB PO DAILY SUPPLEMENT ( Reported) Fluticasone/Salmeterol (Advair 250-50 Diskus) 1 EACH BLST.W.DEV 1 PUF INH BID RESPIRATORY (Reported) Gabapentin 300 MG CAPSULE 300 MG PO BID MENTAL HEALTH (Reported) Guaifenesin/Dextromethorphan (Robitussin Cough-Chest Dm Liq) 100 MG-5 MG/5 ML LIQUID 5-10 ML PO Q6P PRN cough Hydrocodone/Acetaminophen ([place] 5-325 Tablet) 1 EACH TABLET 1 TAB PO BID PAIN (Reported) Hydrocodone/Acetaminophen ([place] 5-325 Tablet) 1 EACH TABLET 1-2 TAB PO Q6P PRN PAIN Hydromorphone HCl (Dilaudid) 2 MG TABLET 1 TAB PO BIDP PRN RIB FX Lactobac #2-S. Therm-Bifido #1 (Vsl#3 Packet) 1 EACH PACKET 1 PAC PO DAILY CALORIC AGENT (Reported) Lamotrigine (Lamictal) 200 MG TABLET 1 TAB PO BID ANTICONVULSANT (Reported) Loratadine (Claritin) 10 MG TABLET 1 TAB PO DAILY ALLERGIES (Reported) Lubiprostone (Amitiza) 8 MCG CAPSULE 1 CAP PO BID GI (Reported) Metoprolol Tartrate 25 MG TABLET 1 TAB PO BID HEART/BP (Reported) Mometasone Furoate (Nasonex) 17 GM SPRAY.PUMP 2 SPRAY NASB QPM NASAL CONGESTION (Reported) Mometasone/Formoterol (Dulera 200 Mcg/5 Mcg Inhaler) 13 GM HFA.AER.AD 2 PUF INH BID RESPIRATORY (Reported) Nystatin 100,000 UNIT/1 ML ORAL.SUSP 5 ML PO 4 TIMES/DAY POLYENES (Reported) Pantoprazole Sodium 40 MG TABLET.DR 40 MG PO DAILY GERD (Reported) Pravastatin Sodium 40 MG TABLET 40 MG PO DAILY CHOL (Reported) Prednisone 20 MG TABLET 1 TAB PO BID copd exacerbation Sucralfate (Carafate) 1 GM TABLET 1 TAB PO TID GI (Reported) Tamsulosin HCl 0.4 MG CAP.ER.24H 1 CAP PO QPM OVERACTIVE BLADDER (Reported) Tiotropium [place] (Spiriva) 18 MCG CAP.W.DEV 1 CAP INH DAILY COPD (Reported) Travoprost (Travatan Z) 5 ML DROPS 1 GTT OD QPM RIGHT EYE (Reported) Valsartan 80 MG TABLET 1 TAB PO DAILY BP (Reported) Compliance With Home Meds: GOOD Past History Travel History Traveled to [place] past 21 day No Medical History Neurological: migraine EENT: sinusitis Cardiovascular: myocardial infarction Respiratory: asthma, LUNG CA Gastrointestinal: irritable bowel syndrome Hepatic: NONE Renal: NONE Musculoskeletal: R KNEE REPLACEMENT Psychiatric: bipolar disease Endocrine: diabetes Cancer(s): L LUNG Tetanus Vaccine: 01/17/16 Surgical History Surgical History: non-contributory Past Family/Social History Family History Relations & Conditions if any FH: heart attack MOTHER Psychosocial History Services at Home: Nursing Primary Language: Cameroonian Smoking Status: Former Smoker ETOH Use: denies use Illicit Drug Use: denies illicit drug use Review of Systems Review of Systems Constitutional: Reports: weakness. EENTM: Reports: no symptoms. Cardiovascular: Reports: chest pain, orthopena, peripheral edema. Respiratory: Reports: see HPI, cough, orthopnea, short of breath. GI: Reports: no symptoms. Genitourinary: Reports: no symptoms. Musculoskeletal: Reports: joint pain. Skin: Reports: no symptoms. Neurological/Psychological: Reports: no symptoms. Hematologic/Endocrine: Reports: no symptoms. Immunologic/Allergic: Reports: no symptoms. Exam & Diagnostic Data Last 24 Hrs of Vital Signs/I&O Vital Signs Date Time Temp Pulse Resp B/P B/P Pulse O2 O2 Flow FiO2 Mean Ox Delivery Rate 01/30 1805 95 Nasal 3.5L Cannula 01/30 1704 80 97 01/30 1433 98.8 86 20 167/77 96 Nasal 3.0L Cannula 01/30 1431 77 94 01/30 1210 98.2 80 17 153/74 94 BIPAP 5.0L 01/30 1207 77 95 01/30 0914 94 29 161/77 100 BIPAP 50% 01/30 0850 110 98 01/30 0848 100 BIPAP 50% 01/30 0840 89 CPAP 100% 01/30 0840 97.2 133 32 216/100 89 BIPAP Intake & Output 01/30 1600 01/30 0800 01/30 0000 Intake Total Output Total 1100 Balance -1100 Output, Urine 1100 Patient 211 lb Weight Weight Bed scale Measurement Method Physical Exam General Appearance Alert, Oriented X3, Cooperative, No Acute Distress Skin No Rashes, No Breakdown, No Significant Lesion Skin Temp/Moisture Exam: Warm/Dry Sepsis Skin Exam (color): Normal for Ethnicity HEENT Atraumatic, PERRLA, EOMI, Mucous Membr. moist/pink Neck Supple, No JVD Cardiovascular Regular Rate, Normal S1, Normal S2, 3/6 LLSB systolic murmur Lungs EXPIRATORY WHEEZING Abdomen Normal Bowel Sounds, Soft, No Tenderness Neurological Normal Speech Extremities No Clubbing, No Cyanosis, Normal Pulses, No Tenderness/Swelling, 1+ non pitting edema Vascular Normal Pulses, Pulses Symmetrical Sepsis Peripheral Pulse Location: Radial Last 24 Hrs of Labs/Jeffrey: Laboratory Tests 01/30/18 0851: Anion Gap 9, Estimated GFR > 60, BUN/Creatinine Ratio 15.0, Glucose 234 H, Calcium 8.5, Troponin I 0.05, Rhu-N-Bxzyyhkcthb Pept 3950 H, CBC w Diff MAN DIFF ORDERED, RBC 4.08 L, MCV 83.7, MCH 28.2, MCHC 33.7, RDW 15.5 H, MPV 6.8 L, Gran % 87.2 H, Lymphocytes % 9.5 L, Monocytes % 1.6 L, Eosinophils % 1.6, Basophils % 0.1, Absolute Granulocytes 15.2 H, Segmented Neutrophils 80 H, Band Neutrophils 5, Absolute Lymphocytes 1.6, Lymphocytes 11 L, Monocytes 1 L, Absolute Monocytes 0.3, Eosinophils 3, Absolute Eosinophils 0.3, Absolute Basophils 0, Platelet Estimate INCREASED, Hypochromic-Microcytic 1+ Assessment/Plan Assessment: This is a 72-year-old female with a past medical history significant for COPD, hypertension, migraines, GERD, diabetes, bipolar disorder, myocardial infarction in 2008, asthma, lung cancer diagnosed in 2015 status post chemotherapy and radiation, irritable bowel syndrome, osteoarthritis status post right knee replacement, glaucoma, cataract surgery right eye that is brought in by ambulance for recent worsening respiratory status with a recent severe episode of respiratory distress. She reports orthopnea, lower extremity edema, cough, chest pain affected by inspiration. She takes albuterol and Spiriva nebulizers at home. Left-sided lung cancer and reportedly has a right-sided nodule that is being worked up. The patient follows with a senior information developer as well as banker mason. She has no current diagnosis of congestive heart failure. In the ED, her vitals were found to be temperature 97.2, pulse 133, respiratory rate 32, but pressure 216/100, pulse ox at first in the field showed 75% saturation on her home oxygen at 2 L. The patient was given a dose of steroids as well as Lasix. Respiratory was contacted and patient was given nebulizer treatments. She was hypertensive so was given nitroglycerin, Lasix helped as well. After receiving BiPAP and the treatments listed, she was satting at 100% on FiO2 of 50%. Her labs showed a WBC of 17.4, hemoglobin 11.5, platelets 480, sodium 132, negative troponin. BNP was 3950. A chest x-ray showed diffuse nonspecific interstitial opacity in both lungs compared to 10/31/17 that could represent cardiogenic pulmonary edema or multilobar pneumonitis. The left upper lobe opacity remains similar in appearance compared to 12/11/2016. Assessment Acute hypoxic respiratory failure likely secondary to COPD/CHF exacerbation, potential contribution of fibrosis secondary to chemotherapy/radiation therapy for lung cancer Right-sided lung nodule currently being worked up Hyponatremia History of diabetes History of hypertension Bipolar disorder with previous suicide attempts Plan -Admit patient to telemetry for evaluation and close monitoring -ABG -Start patient on Solu-Medrol 40 mg every 12 -Pulmonology and cardiology consults -TRC/nebs with continuation of BiPAP for now -IV Lasix dose, refer to cardiology recommendations -Echo records/stress test records from Dr. Burgos -Serial EKGs and troponins -Orthostatic vitals -Continue patient home medications -Accu checks, of note patient is not on any home diabetes medications, we will start her on low-dose sliding scale Heart healthy diet Patient is full code DVT prophylaxis with Alps and Lovenox As Ranked By This Provider Problem List: 1. COPD exacerbation 2. CHF (congestive heart failure) Qualifiers Heart failure type: unspecified Heart failure chronicity: acute Qualified Code: I50.9 - Heart failure, unspecified 3. Pulmonary nodule 4. Lung mass Core Measures/Misc (02/20) Acute Coronary Syndrome ACS Diagnosis: No Congestive Heart Failure Congestive Heart Failure Diagnosis Yes Cerebrovascular Accident CVA/TIA Diagnosis: No VTE (View Protocol) VTE Risk Factors Acute Medical Illness No Mechanical VTE Prophylaxis d/t N/A MechProphylax Ordered No VTE Pharm Prophylaxis d/t NA PharmProphylax ordered Sepsis (View protocol) Sepsis Present: No If YES complete Sepsis Event Note If YES complete Sepsis Event Note
[2018-01-30 23:05] VITALS: BP 168/84
[2018-01-31 03:58] LABS: ABSOLUTE BASOPHIL COUNT 0 /CUMM (0.0-0.2); ABSOLUTE EOSINOPHIL COUNT 0 /CUMM (0.0-0.7); ABSOLUTE GRANULOCYTE CT 8.4 /CUMM (1.4-6.5); ABSOLUTE LYMPH COUNT 0.6 /CUMM (1.2-3.4); ABSOLUTE MONOCYTE COUNT 0.1 /CUMM (0.10-0.60); BASOPHIL % 0.2 % (0.0-2.0); EOSINOPHIL % 0 % (0-5); GRANULOCYTE % 91.8 % (42.2-75.2); HEMATOCRIT 32.9 % (37-47); MEAN CORPUSCULAR HGB 27.9 PG (27.0-31.0); MEAN CORPUSCULAR HGB CONC 33.3 G/DL (33.0-37.0); MEAN CORPUSCULAR VOLUME 83.8 FL (81.0-99.0); MEAN PLATELET VOLUME 6.7 FL (7.4-10.4); PLATELET COUNT 419 /CUMM (130-400); RBC DISTRIBUTION WIDTH 15.6 % (11.5-14.5); RED BLOOD CELL CT 3.93 /CUMM (4.20-5.40); WHITE BLOOD CELL COUNT 9.2 /CUMM (4.8-10.8)
[2018-01-31 06:30] VITALS: BP 144/80
--- NOTE | 2018-01-31 08:27 | Cons- Pulmonary ---
General Information and HPI Consulting Request Date of Consult: 01/31/18 Requested By: Dr. Cullen Reason for Consult: dyspnea Source of Information: patient Exam Limitations: no limitations History of Present Illness: 72 year old woman. Admitted with dyspnea. Hx of COPD on 2-3LNC at home, sees Dr. Vanegas ([facility]), Dr. Krause ([facility] ). On spiriva, dulera, nebs at home. Hx of lung ca - per pt had a follow up CT scan on Tuesday (please obtain records) . Lung ca dx 2014, s/p chemo/radiation. Hx of [place], sees Dr. Burgos. Presented with dyspnea, leg edema, not similar to her historical COPD exacerbations. Required transient bipap. Feels better this am. CXR - with increased markings. BNP - 3950. No n/v/d/c. No cp, no rajput. No fevers, no chills, no sick contacts, no travel history. +bilateral mild calf discomfort without erythema, no palpable cord, no redness. Allergies/Medications Allergies: Coded Allergies: Penicillins (RASH 01/17/16) aspirin (UNKNOWN 01/17/16) cephalexin (From KEFLEX) (UNKNOWN 01/17/16) codeine (UNKNOWN 01/17/16) latex (RASH 01/17/16) nabumetone (UNKNOWN 01/17/16) Uncoded Allergies: HORSE MEAT (Severe, HIVES 02/03/12) Home Med List: Albuterol Sulfate 2.5 MG/3 ML VIAL.NEB 1 Vial INH/ROCIO Q6H PRN SOB/WHEEZE ( Reported) Albuterol Sulfate (Proair Hfa) 8.5 GM HFA.AER.AD 2 PUF INH Q4H PRN COPD ( Reported) Aripiprazole (Abilify) 10 MG TABLET 1 TAB PO DAILY MENTAL HEALTH (Reported) Aspirin (Children's Aspirin) 81 MG TAB.CHEW 1 TAB PO DAILY HEART HEALTH ( Reported) Calcium Carbonate/Vitamin D3 (Caltrate 600 + D Tablet) 1 EACH TABLET 1 TAB PO BID SUPPLEMENT (Reported) Chlorhexidine Gluconate (Peridex) 473 ML MOUTHWASH DENTITION (Reported) Cyanocobalamin (Vitamin B-12) 1,000 MCG TABLET 1 TAB PO DAILY V (Reported) Diclofenac Sodium (Voltaren) 100 GM GEL..GRAM. 1 GM TOP 4 TIMES/DAY JOINTS OF HANDS (Reported) apply to affected area(s) Escitalopram Oxalate (Lexapro 10MG) 10 MG TABLET 1 TAB PO DAILY MENTAL HEALTH (Reported) Ferrous Sulfate (Iron Supplement) 325 MG TABLET 1 TAB PO DAILY SUPPLEMENT ( Reported) Fluticasone/Salmeterol (Advair 250-50 Diskus) 1 EACH BLST.W.DEV 1 PUF INH BID RESPIRATORY (Reported) Gabapentin 300 MG CAPSULE 300 MG PO BID MENTAL HEALTH (Reported) Guaifenesin/Dextromethorphan (Robitussin Cough-Chest Dm Liq) 100 MG-5 MG/5 ML LIQUID 5-10 ML PO Q6P PRN cough Hydrocodone/Acetaminophen ([place] 5-325 Tablet) 1 EACH TABLET 1 TAB PO BID PAIN (Reported) Hydrocodone/Acetaminophen ([place] 5-325 Tablet) 1 EACH TABLET 1-2 TAB PO Q6P PRN PAIN Hydromorphone HCl (Dilaudid) 2 MG TABLET 1 TAB PO BIDP PRN RIB FX Lactobac #2-S. Therm-Bifido #1 (Vsl#3 Packet) 1 EACH PACKET 1 PAC PO DAILY CALORIC AGENT (Reported) Lamotrigine (Lamictal) 200 MG TABLET 1 TAB PO BID ANTICONVULSANT (Reported) Loratadine (Claritin) 10 MG TABLET 1 TAB PO DAILY ALLERGIES (Reported) Lubiprostone (Amitiza) 8 MCG CAPSULE 1 CAP PO BID GI (Reported) Metoprolol Tartrate 25 MG TABLET 1 TAB PO BID HEART/BP (Reported) Mometasone Furoate (Nasonex) 17 GM SPRAY.PUMP 2 SPRAY NASB QPM NASAL CONGESTION (Reported) Mometasone/Formoterol (Dulera 200 Mcg/5 Mcg Inhaler) 13 GM HFA.AER.AD 2 PUF INH BID RESPIRATORY (Reported) Nystatin 100,000 UNIT/1 ML ORAL.SUSP 5 ML PO 4 TIMES/DAY POLYENES (Reported) Pantoprazole Sodium 40 MG TABLET.DR 40 MG PO DAILY GERD (Reported) Pravastatin Sodium 40 MG TABLET 40 MG PO DAILY CHOL (Reported) Prednisone 20 MG TABLET 1 TAB PO BID copd exacerbation Sucralfate (Carafate) 1 GM TABLET 1 TAB PO TID GI (Reported) Tamsulosin HCl 0.4 MG CAP.ER.24H 1 CAP PO QPM OVERACTIVE BLADDER (Reported) Tiotropium [place] (Spiriva) 18 MCG CAP.W.DEV 1 CAP INH DAILY COPD (Reported) Travoprost (Travatan Z) 5 ML DROPS 1 GTT OD QPM RIGHT EYE (Reported) Valsartan 80 MG TABLET 1 TAB PO DAILY BP (Reported) Current Medications: Current Medications Sig/Ayaz Start time Last Medication Dose Route Stop Time Status Admin Albuterol Sulfate 3 ML Q6H PRN 01/30 1815 AC INH Albuterol Sulfate 2 PUF Q4H PRN 01/30 1815 AC INH Albuterol Sulfate 3 ML ONCE ONE 01/30 0845 DC 01/30 INH 01/30 0846 0848 Aripiprazole 10 MG DAILY 01/31 09 AC PO Atorvastatin Calcium 10 MG 1700 01/31 1700 AC PO Calcium/Vitamin D 500 MG DAILY 01/31 09 AC PO Cyanocobalamin 1,000 MCG DAILY 01/30 1812 AC 01/30 PO 2347 Diclofenac Sodium 1 VEE 4 TIMES/DAY 01/30 1816 AC 01/30 TOP 2354 Enoxaparin Sodium 0 .STK-MED ONE 01/30 2116 DC SC Enoxaparin Sodium 40 MG DAILY 01/30 1808 AC 01/30 SC 2346 Escitalopram Oxalate 10 MG DAILY 01/31 09 AC PO Ferrous Sulfate 325 MG DAILY 01/31 09 AC PO Furosemide 0 .STK-MED ONE 01/30 0846 DC IV Furosemide 40 MG ONCE ONE 01/30 0845 DC 01/30 IV PUSH 01/30 0846 0911 Gabapentin 300 MG BID 01/30 2100 AC 01/31 PO 0005 Hydrocodone Bitart/ 1 TAB ONCE ONE 01/30 2145 DC 01/30 Acetaminophen PO 01/30 2146 2318 Insulin Aspart 0 TIDAC 01/31 0800 AC SC Ipratropium [place] 2.5 ML ONCE ONE 01/30 0845 DC 01/30 INH 01/30 0846 0848 Lamotrigine 200 MG BID 01/30 2100 AC 01/30 PO 2354 Latanoprost 1 GTT AT BEDTIME 01/30 2100 AC 01/30 OPH 2353 Loratadine 10 MG DAILY 01/31 09 AC PO Losartan Potassium 50 MG DAILY 01/31 09 AC PO Lubiprostone 8 MCG BID 01/30 2100 AC 01/31 PO 0053 Methylprednisolone 40 MG Q12 01/30 2100 AC 01/30 IV 2352 Methylprednisolone 125 MG ONCE ONE 01/30 0845 DC 01/30 IV 01/30 0846 0911 Methylprednisolone 0 .STK-MED ONE 01/30 0835 DC .ROUTE Metoprolol Tartrate 25 MG BID 01/30 2100 AC 01/30 PO 2350 Nitroglycerin 0 .STK-MED ONE 01/30 0846 DC TOP Nitroglycerin 1 GM ONCE ONE 01/30 0845 DC 01/30 TOP 01/30 0846 0911 Nystatin 5 ML 4 TIMES/DAY 01/30 1823 AC 01/30 PO 2348 Omeprazole 40 MG DAILY AC 01/31 0700 AC 01/31 PO 0617 Sodium Chloride 2 SPRAY BID 01/30 2100 AC 01/30 SAM 2349 Sucralfate 1,000 MG TID 01/30 2100 AC 01/30 PO 2352 Tamsulosin HCl 0.4 MG QPM 01/30 2100 AC 01/30 PO 2352 Tiotropium [place] 1 PUF DAILY 01/31 0900 AC INH Trazodone HCl 100 MG AT BEDTIME NEED.. 01/31 0030 AC 01/31 PO 0053 Review of Systems Comments 18 pt ROS reviewed pertinent positives and negatives in chart otherwise negative Past History Travel History Traveled to [place] past 21 day No Medical History Blood Transfusion Hx: Yes Neurological: migraine EENT: sinusitis Cardiovascular: myocardial infarction Respiratory: asthma, LUNG CA Gastrointestinal: irritable bowel syndrome Hepatic: NONE Renal: NONE Musculoskeletal: R KNEE REPLACEMENT Psychiatric: bipolar disease Endocrine: diabetes Cancer(s): L LUNG Surgical History Surgical History: non-contributory Family History Relations & Conditions If Any: MOTHER FH: heart attack Psychosocial History Where Do You Live? Home Services at Home: Nursing, Oxygen Primary Language: Tam[place] Smoking Status: Former Smoker ETOH Use: denies use Illicit Drug Use: denies illicit drug use Exam & Diagnostic Data Last 24 Hrs of Vital Signs/I&O Vital Signs Date Time Temp Pulse Resp B/P B/P Pulse O2 O2 Flow FiO2 Mean Ox Delivery Rate 01/31 630 98.9 72 24 144/80 97 Nasal Cannula 01/31 2352 78 168/84 01/30 2350 78 168/84 01/30 2305 98.6 78 22 168/84 95 Nasal Cannula 01/30 2300 Nasal 3.5L Cannula 01/31 2224 99.0 72 22 158/77 94 Nasal 3.0L Cannula 01/306 98.2 76 22 168/77 94 Nasal 3.0L Cannula 01/30 1805 95 Nasal 3.5L Cannula 01/30 1704 80 97 01/30 1433 98.8 86 20 167/77 96 Nasal 3.0L Cannula 01/30 1431 77 94 01/30 1210 98.2 80 17 153/74 94 BIPAP 5.0L 01/30 1207 77 95 01/30 0914 94 29 161/77 100 BIPAP 50% Intake & Output 01/31 1600 01/31 0800 01/31 0000 Intake Total 360 360 Output Total 500 Balance 360 -140 Intake, Oral 360 360 Output, Urine 500 Physical Exam Other Physical Findings: gen-[id number] heent-nasal cannula cvs-s1,s2 lungs-mild bibasilar rhonchi otherwise clear abd-soft,bs+ ext-trace edema, mild calf discomfort Last 48 Hrs of Labs/Jeffrey: Laboratory Tests 01/31/18 0320: Troponin I 0.03 01/31/18 032: Anion Gap 11, Estimated GFR > 60, BUN/Creatinine Ratio 18.3, CBC w Diff MAN DIFF ORDERED, RBC 3.93 L, MCV 83.8, MCH 27.9, MCHC 33.3, RDW 15.6 H, MPV 6.7 L, Gran % 91.8 H, Lymphocytes % 6.5 L, Monocytes % 1.5 L, Eosinophils % 0, Basophils % 0.2, Absolute Granulocytes 8.4 H, Segmented Neutrophils 89 H, Band Neutrophils 1, Absolute Lymphocytes 0.6 L, Lymphocytes 9 L, Monocytes 1 L, Absolute Monocytes 0.1, Absolute Eosinophils 0, Absolute Basophils 0, Platelet Estimate INCREASED, Polychromasia 1+, Basophilic Stippling RARE, Ovalocytes FEW, Fld Total RBCs Counted 100 01/30/181954: pH 7.47 H, pCO2 41, pO2 91, HCO3 29 H, ABG O2 Sat (Measured) 97.0, P-50 (Temp Corrected) N, Carboxyhemoglobin 0.3 L, O2 Concentration % 3.5L, Temperature 98.8, O2 Delivery Method NC, Phlebotomy Draw Site RIGHT BRACHIAL 01/30/18 193: Troponin I 0.04 01/30/18 0851: Anion Gap 9, Estimated GFR > 60, BUN/Creatinine Ratio 15.0, Glucose 234 H, Calcium 8.5, Troponin I 0.05, Ndn-W-Amohspmxgjg Pept 3950 H, CBC w Diff MAN DIFF ORDERED, RBC 4.08 L, MCV 83.7, MCH 28.2, MCHC 33.7, RDW 15.5 H, MPV 6.8 L, Gran % 87.2 H, Lymphocytes % 9.5 L, Monocytes % 1.6 L, Eosinophils % 1.6, Basophils % 0.1, Absolute Granulocytes 15.2 H, Segmented Neutrophils 80 H, Band Neutrophils 5, Absolute Lymphocytes 1.6, Lymphocytes 11 L, Monocytes 1 L, Absolute Monocytes 0.3, Eosinophils 3, Absolute Eosinophils 0.3, Absolute Basophils 0, Platelet Estimate INCREASED, Hypochromic-Microcytic 1+ Assessment/Plan Impression/Plan: Impression 72 year old woman * leg edema (improved), elevated BNP, cxr with increased markings - consistent with an exacerbation of congestive heart failure * hx of COPD - at baseline oxygen - at home 2-3LNC - mild exacerbation * hx of lung ca Plan -please alert Dr. Burgos for cardiology input, patient requesting as well -obtain ECHO -obtain records from [facility] (Dr. Krause) - pt had a CT scan of chest last week for lung ca follow up -TRC, continue inhalers -would continue solumedrol 40mg iv q12h today, then will reduce to po prednisone tomorrow 40mg if no events -discontinue bipap for now -fio2 goal >92% -check LE - venous dopplers - calf discomfort and mild edema Consult Acknowledgment - Thank you for your consult request.
--- NOTE | 2018-01-31 09:31 | Cons- Cardiology ---
General Information and HPI Consulting Request Date of Consult: 01/30/18 Requested By: Aden Cullen MD History of Present Illness: Lucia is a 72 year old female who carries multiple risk factors for coronary artery disease, including dyslipidemia, diabetes mellitus, and a prior myocardial infarction that she experienced approximately nine years ago. She also carries a history of GERD. 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 This cancer has spread inside the chest cavity. She is status post chemotherapy and radiation for this and she is very tired out from this treatment. Her COPD put her at increased risk for respiratory failure if a lung resection was performed so this was not an option. She was recently noted to have a pericardial effusion by CT imaging and an echocardiogram to assess this issue did confirm a small pericardial effusion without tamponade physiology. Over the past few days this patient has noted progressively worsening shortness of breath with orthopnea. She has a dry cough and chills but denied having a fever. The patient will feel some chest pressure lying down but does not engage in physical exertion to determine if there is an exertional component to the discomfort. Her echo did show an overall normal EF of 60% with mild LVH and markedly dilated left atrium. Her aortic valve is moderately sclerotic without significant stenosiss and there is mild MR with mild to moderate TR. Her RV pressures are elevated to 50mmHg. Finally, there is a small pericardiac effusion without evidence of tamponade. A recent stress test was negative for ischemia. It may be recalled that Lucia had a cough on Lisinopril but is doing better on Diovan. She quit smoking with the help of Wellbutrin which she is now off of. Her previous description of chest discomfort, which she is no longer exhibiting, was a severe lower mid sternal discomfort that radiated to her back. She also notes an occasional sharp and nonexertional discomfort. In October of 2012 in response to the patient's risk factors and symptoms, I opted to perform a cardiac catheterization on Lucia. This study disclosed a normal left main. The LAD had luminal irregularities from its mid to distal segment, with intramuscular bridging in its mid segment. The left circumflex was normal. cusp. It was otherwise patent. Left ventriculography showed an overall ejection fraction of 55%. Intramuscular bridging is a collapse of the LAD that occurs during systole due to the fact that the vessel is buried deep into the cardiac muscle. Situations that result in tachycardia will increase the ratio of systole to diastole, and can result in chest discomfort, or even a myocardial infarction. This, however, is not something that's typically treated by angioplasty, and I opted for medical therapy. Allergies/Medications Allergies: Coded Allergies: Penicillins (RASH 01/17/16) aspirin (UNKNOWN 01/17/16) cephalexin (From KEFLEX) (UNKNOWN 01/17/16) codeine (UNKNOWN 01/17/16) latex (RASH 01/17/16) nabumetone (UNKNOWN 01/17/16) Uncoded Allergies: HORSE MEAT (Severe, HIVES 02/03/12) Home Med List: Albuterol Sulfate 2.5 MG/3 ML VIAL.NEB 1 Vial INH/ROCIO Q6H PRN SOB/WHEEZE ( Reported) Albuterol Sulfate (Proair Hfa) 8.5 GM HFA.AER.AD 2 PUF INH Q4H PRN COPD ( Reported) Aripiprazole (Abilify) 10 MG TABLET 1 TAB PO DAILY MENTAL HEALTH (Reported) Aspirin (Children's Aspirin) 81 MG TAB.CHEW 1 TAB PO DAILY HEART HEALTH ( Reported) Calcium Carbonate/Vitamin D3 (Caltrate 600 + D Tablet) 1 EACH TABLET 1 TAB PO BID SUPPLEMENT (Reported) Chlorhexidine Gluconate (Peridex) 473 ML MOUTHWASH DENTITION (Reported) Cyanocobalamin (Vitamin B-12) 1,000 MCG TABLET 1 TAB PO DAILY V (Reported) Diclofenac Sodium (Voltaren) 100 GM GEL..GRAM. 1 GM TOP 4 TIMES/DAY JOINTS OF HANDS (Reported) apply to affected area(s) Escitalopram Oxalate (Lexapro 10MG) 10 MG TABLET 1 TAB PO DAILY MENTAL HEALTH (Reported) Ferrous Sulfate (Iron Supplement) 325 MG TABLET 1 TAB PO DAILY SUPPLEMENT ( Reported) Fluticasone/Salmeterol (Advair 250-50 Diskus) 1 EACH BLST.W.DEV 1 PUF INH BID RESPIRATORY (Reported) Gabapentin 300 MG CAPSULE 300 MG PO BID MENTAL HEALTH (Reported) Guaifenesin/Dextromethorphan (Robitussin Cough-Chest Dm Liq) 100 MG-5 MG/5 ML LIQUID 5-10 ML PO Q6P PRN cough Hydrocodone/Acetaminophen ([place] 5-325 Tablet) 1 EACH TABLET 1 TAB PO BID PAIN (Reported) Hydrocodone/Acetaminophen ([place] 5-325 Tablet) 1 EACH TABLET 1-2 TAB PO Q6P PRN PAIN Hydromorphone HCl (Dilaudid) 2 MG TABLET 1 TAB PO BIDP PRN RIB FX Lactobac #2-S. Therm-Bifido #1 (Vsl#3 Packet) 1 EACH PACKET 1 PAC PO DAILY CALORIC AGENT (Reported) Lamotrigine (Lamictal) 200 MG TABLET 1 TAB PO BID ANTICONVULSANT (Reported) Loratadine (Claritin) 10 MG TABLET 1 TAB PO DAILY ALLERGIES (Reported) Lubiprostone (Amitiza) 8 MCG CAPSULE 1 CAP PO BID GI (Reported) Metoprolol Tartrate 25 MG TABLET 1 TAB PO BID HEART/BP (Reported) Mometasone Furoate (Nasonex) 17 GM SPRAY.PUMP 2 SPRAY NASB QPM NASAL CONGESTION (Reported) Mometasone/Formoterol (Dulera 200 Mcg/5 Mcg Inhaler) 13 GM HFA.AER.AD 2 PUF INH BID RESPIRATORY (Reported) Nystatin 100,000 UNIT/1 ML ORAL.SUSP 5 ML PO 4 TIMES/DAY POLYENES (Reported) Pantoprazole Sodium 40 MG TABLET.DR 40 MG PO DAILY GERD (Reported) Pravastatin Sodium 40 MG TABLET 40 MG PO DAILY CHOL (Reported) Prednisone 20 MG TABLET 1 TAB PO BID copd exacerbation Sucralfate (Carafate) 1 GM TABLET 1 TAB PO TID GI (Reported) Tamsulosin HCl 0.4 MG CAP.ER.24H 1 CAP PO QPM OVERACTIVE BLADDER (Reported) Tiotropium [place] (Spiriva) 18 MCG CAP.W.DEV 1 CAP INH DAILY COPD (Reported) Travoprost (Travatan Z) 5 ML DROPS 1 GTT OD QPM RIGHT EYE (Reported) Valsartan 80 MG TABLET 1 TAB PO DAILY BP (Reported) Review of Systems Review of Systems: A review of systems is unremarkable. Past History Travel History Traveled to [place] past 21 day No Medical History Blood Transfusion Hx: Yes Neurological: migraine EENT: sinusitis Cardiovascular: myocardial infarction Respiratory: asthma, LUNG CA Gastrointestinal: irritable bowel syndrome Hepatic: NONE Renal: NONE Musculoskeletal: R KNEE REPLACEMENT Psychiatric: bipolar disease Endocrine: diabetes Cancer(s): L LUNG Surgical History Surgical History: non-contributory Family History Relations & Conditions If Any: MOTHER FH: heart attack Psychosocial History Where Do You Live? Home Services at Home: Nursing, Oxygen Primary Language: Trinidadian Smoking Status: Former Smoker ETOH Use: denies use Illicit Drug Use: denies illicit drug use Exam & Diagnostic Data Vital Signs and I&O Vital Signs Date Time Temp Pulse Resp B/P B/P Pulse O2 O2 Flow FiO2 Mean Ox Delivery Rate 01/31 0630 98.9 72 24 144/80 97 Nasal Cannula 01/30 2352 78 168/84 01/30 2350 78 168/84 01/30 2305 98.6 78 22 168/84 95 Nasal Cannula 01/30 2300 Nasal 3.5L Cannula 01/30 2224 99.0 72 22 158/77 94 Nasal 3.0L Cannula 01/30 2036 98.2 76 22 168/77 94 Nasal 3.0L Cannula 01/30 1805 95 Nasal 3.5L Cannula 01/30 1704 80 97 01/30 1433 98.8 86 20 167/77 96 Nasal 3.0L Cannula 01/30 1431 77 94 01/30 1210 98.2 80 17 153/74 94 BIPAP 5.0L 01/30 1207 77 95 Intake & Output 01/31 1600 01/31 0800 01/31 0000 01/30 1600 01/30 0800 01/30 0000 Intake Total 360 360 Output Total 500 1100 Balance 360 -140 -1100 Intake, Oral 360 360 Output, Urine 500 1100 Patient 211 lb Weight Weight Bed scale Measurement Method Physical Exam: General: WD/overweight female in NAD; alert and oriented x 3 HEENT: NC/AT, PERRL, EOMI Neck: no JVD, no carotid bruit Heart: RRR w/o murmur Lungs: decreased air movement with scant crackles at bases bilaterally Abdomen: soft, NT, +ve bowel sounds Extremities: no edema Assessment/Plan Assessment/Plan * This patient has a lung cancer and clearly does not have clear lungs on X-ray. We will diurese her with Lasix 40mg IV BID and will repeat an X-ray to observe for an underlying infiltrate or mass. * The patient has had a prior pericardiac effusion. Repeat an echocardigram. If there is a significant effusion we will need to consider a pericardial window. * I have a low suspicion of ischemia at this point in time. Consult Acknowledgment - Thank you for your consult request.
--- NOTE | 2018-01-31 10:07 | PN- Att Addend ---
Attending Addendum Attending Brief Note Patient looking and feeling much better. Breathing much better in no respiratory distress. Vital signs are stable temperature max 99. Better air entry. Will continue recommendations as per pulmonary also will be seen by cardiology to rule out a cardiac component like congestive heart failure. 24 TOTALS 01/31 0000 01/30 0000 Intake Total 360 Output Total 1600 Balance -1240 Intake, Oral 360 Output, Urine 1600 Patient 211 lb Weight Weight Bed scale Measurement Method Current Medications Sig/Ayaz Start time Last Medication Dose Route Stop Time Status Admin Albuterol Sulfate 3 ML Q6H PRN 01/30 181 AC INH Albuterol Sulfate 2 PUF Q4H PRN 01/30 1815 AC INH Aripiprazole 10 MG DAILY 01/31 900 AC 01/31 PO 0926 Atorvastatin Calcium 10 MG 1700 01/31 1700 AC PO Calcium/Vitamin D 500 MG DAILY 01/31 09 AC 01/31 PO 0931 Cyanocobalamin 1,000 MCG DAILY 01/30 1812 AC 01/31 PO 0932 Diclofenac Sodium 1 VEE 4 TIMES/DAY 01/30 1816 AC 01/31 TOP 0932 Enoxaparin Sodium 0 .STK-MED ONE 01/30 2116 DC SC Enoxaparin Sodium 40 MG DAILY 01/30 1808 AC 01/31 SC 0931 Escitalopram Oxalate 10 MG DAILY 01/31 09 AC 01/31 PO 0930 Ferrous Sulfate 325 MG DAILY 01/31 09 AC 01/31 PO 0929 Gabapentin 300 MG BID 01/30 2100 AC 01/31 PO 0934 Hydrocodone Bitart/ 1 TAB ONCE ONE 01/30 2145 DC 01/30 Acetaminophen PO 01/30 2146 2318 Insulin Aspart 0 TIDAC 01/31 08 AC 01/31 SC 0844 Lamotrigine 200 MG BID 01/30 2100 AC 01/31 PO 0929 Latanoprost 1 GTT AT BEDTIME 01/30 2100 AC 01/30 OPH 2353 Loratadine 10 MG DAILY 01/31 900 AC 01/31 PO 0928 Losartan Potassium 50 MG DAILY 01/31 900 AC 01/31 PO 0928 Lubiprostone 8 MCG BID 01/30 2100 AC 01/31 PO 0927 Methylprednisolone 40 MG Q12 01/30 2100 AC 01/31 IV 0920 Metoprolol Tartrate 25 MG BID 01/30 2100 AC 01/31 PO 0930 Nystatin 5 ML 4 TIMES/DAY 01/30 1823 AC 01/31 PO 0930 Omeprazole 40 MG DAILY AC 01/31 0700 AC 01/31 PO 0617 Sodium Chloride 2 SPRAY BID 01/30 2100 AC 01/31 SAM 0931 Sucralfate 1,000 MG TID 01/30 2100 AC 01/31 PO 0927 Tamsulosin HCl 0.4 MG QPM 01/30 2100 AC 01/30 PO 2352 Tiotropium [place] 1 PUF DAILY 01/31 09 AC 01/31 INH 0932 Trazodone HCl 100 MG AT BEDTIME NEED.. 01/31 0030 AC 01/31 PO 0053 Laboratory Tests 01/31/18 0320: Troponin I 0.03 01/31/18 032: Anion Gap 11, Estimated GFR > 60, BUN/Creatinine Ratio 18.3, CBC w Diff MAN DIFF ORDERED, RBC 3.93 L, MCV 83.8, MCH 27.9, MCHC 33.3, RDW 15.6 H, MPV 6.7 L, Gran % 91.8 H, Lymphocytes % 6.5 L, Monocytes % 1.5 L, Eosinophils % 0, Basophils % 0.2, Absolute Granulocytes 8.4 H, Segmented Neutrophils 89 H, Band Neutrophils 1, Absolute Lymphocytes 0.6 L, Lymphocytes 9 L, Monocytes 1 L, Absolute Monocytes 0.1, Absolute Eosinophils 0, Absolute Basophils 0, Platelet Estimate INCREASED, Polychromasia 1+, Basophilic Stippling RARE, Ovalocytes FEW, Fld Total RBCs Counted 100 01/30/181954: pH 7.47 H, pCO2 41, pO2 91, HCO3 29 H, ABG O2 Sat (Measured) 97.0, P-50 (Temp Corrected) N, Carboxyhemoglobin 0.3 L, O2 Concentration % 3.5L, Temperature 98.8, O2 Delivery Method NC, Phlebotomy Draw Site RIGHT BRACHIAL 01/30/18 1935: Troponin I 0.04 01/30/18 0851: Anion Gap 9, Estimated GFR > 60, BUN/Creatinine Ratio 15.0, Glucose 234 H, Calcium 8.5, Troponin I 0.05, Uaz-M-Mumjefgogpz Pept 3950 H, CBC w Diff MAN DIFF ORDERED, RBC 4.08 L, MCV 83.7, MCH 28.2, MCHC 33.7, RDW 15.5 H, MPV 6.8 L, Gran % 87.2 H, Lymphocytes % 9.5 L, Monocytes % 1.6 L, Eosinophils % 1.6, Basophils % 0.1, Absolute Granulocytes 15.2 H, Segmented Neutrophils 80 H, Band Neutrophils 5, Absolute Lymphocytes 1.6, Lymphocytes 11 L, Monocytes 1 L, Absolute Monocytes 0.3, Eosinophils 3, Absolute Eosinophils 0.3, Absolute Basophils 0, Platelet Estimate INCREASED, Hypochromic-Microcytic 1+ Vital Signs Date Time Temp Pulse Resp B/P B/P Pulse O2 O2 Flow FiO2 Mean Ox Delivery Rate 01/31 0930 82 130/90 01/31 0928 82 130/80 01/31 0630 98.9 72 24 144/80 97 Nasal Cannula 01/30 2352 78 168/01/30 2350 78 168/01/30 2305 98.6 78 22 168 95 Nasal Cannula 01/30 2300 Nasal 3.5L Cannula 01/30 2224 99.0 72 22 158/77 94 Nasal 3.0L Cannula 01/30 2036 98.2 76 22 168 94 Nasal 3.0L Cannula 01/30 1805 95 Nasal 3.5L Cannula 01/30 1704 80 97 01/30 1433 98.8 86 20 167/77 96 Nasal 3.0L Cannula 01/30 1431 77 94 01/30 1210 98.2 80 17 153/74 94 BIPAP 5.0L 01/30 1207 77 95
--- NOTE | 2018-01-31 10:34 | PN- Housestaff ---
Subjective Follow-up For: copd exacerbation chf history lung cancer Subjective: patient seen and examined. vitals are stable other than increased O2 requirement over and above her normal home 2L (currently on 3L). patient denies chest pain. she admits to lower extremity tenderness to palpation of the calves. She has minor lower extremity edema. Review of Systems Constitutional: Reports: no symptoms. EENTM: Reports: no symptoms. Cardiovascular: Reports: no symptoms. Respiratory: Reports: orthopnea, short of breath, wheezing. Gastrointestinal: Reports: no symptoms. Musculoskeletal: Reports: muscle pain. Skin: Reports: no symptoms. Objective Last 24 Hrs of Vital Signs/I&O Vital Signs Date Time Temp Pulse Resp B/P B/P Pulse O2 O2 Flow FiO2 Mean Ox Delivery Rate 01/31 2201 98.4 72 20 146/42 95 01/31 2130 Nasal 3.0L Cannula 01/31 2030 76 152/78 01/31 2030 76 152/78 02/01 2008 95 Nasal 2.0L Cannula 01/31 1600 96 Nasal 3.0L Cannula 01/31 1459 98.3 73 22 140/76 97 Nasal Cannula 01/31 1446 Nasal 3.0L Cannula 01/31 0930 82 130/90 01/31 0928 82 130/80 01/31 0800 98 Nasal 3.0L Cannula 01/31 0630 98.9 72 24 144/80 97 Nasal Cannula Intake & Output 01/31 1600 01/31 0800 01/31 0000 Intake Total 300 360 360 Output Total 650 500 Balance -350 360 -140 Intake, Oral 300 360 360 Output, Urine 650 500 Physical Exam General Appearance: Alert, Oriented X3, Cooperative, No Acute Distress Skin Temp/Moisture Exam: Warm/Dry HEENT: Atraumatic, PERRLA, EOMI, Mucous Membr. moist/pink Cardiovascular: Regular Rate, Normal S1, Normal S2 Lungs: Clear to Auscultation Abdomen: Normal Bowel Sounds, Soft, No Tenderness Extremities: No Clubbing, No Cyanosis, Normal Pulses Current Medications: Current Medications Sig/Ayaz Start time Last Medication Dose Route Stop Time Status Admin Albuterol Sulfate 3 ML BID 01/31 2100 AC 01/31 INH 2007 Albuterol Sulfate 3 ML Q6H PRN 01/30 1815 DC 01/31 INH 1140 Albuterol Sulfate 2 PUF Q4H PRN 01/30 1815 AC INH Aripiprazole 10 MG DAILY 01/31 0900 AC 01/31 PO 0926 Atorvastatin Calcium 10 MG 1700 01/31 1700 AC 01/31 PO 1736 Calcium/Vitamin D 500 MG DAILY 01/31 0900 AC 01/31 PO 0931 Cyanocobalamin 1,000 MCG DAILY 01/30 1812 AC 01/31 PO 0932 Diclofenac Sodium 1 VEE 4 TIMES/DAY 01/30 1816 AC 01/31 TOP 2024 Enoxaparin Sodium 40 MG DAILY 01/30 1808 AC 01/31 SC 0931 Escitalopram Oxalate 10 MG DAILY 01/31 0900 AC 01/31 PO 0930 Ferrous Sulfate 325 MG DAILY 01/31 09 AC 01/31 PO 0929 Furosemide 40 MG 7:30 AM, & 4:30 PM 01/31 1630 AC 01/31 IV 1736 Furosemide 40 MG ONCE ONE 01/31 1110 DC 01/31 IV 01/31 1111 1144 Gabapentin 300 MG BID 01/30 2100 AC 01/31 PO 2023 Insulin Aspart 0 TIDAC 01/31 08 AC 01/31 SC 1735 Lamotrigine 200 MG BID 01/30 2100 AC 01/31 PO 2023 Latanoprost 1 GTT AT BEDTIME 01/30 2100 AC 01/31 OPH 2023 Loratadine 10 MG DAILY 01/31 09 AC 01/31 PO 927 Losartan Potassium 50 MG DAILY 01/31 09 AC 01/31 PO 927 Lubiprostone 8 MCG BID 01/30 2100 AC 01/31 PO 2030 Methylprednisolone 40 MG Q12 01/30 2100 AC 01/31 IV 202 Metoprolol Tartrate 25 MG BID 01/30 2100 AC 01/31 PO 2030 Nystatin 5 ML 4 TIMES/DAY 01/30 1823 AC 01/31 PO 202 Omeprazole 40 MG DAILY AC 01/31 0700 AC 01/31 PO 0617 Sodium Chloride 2 SPRAY BID 01/30 2100 AC 01/31 SAM 2022 Sucralfate 1,000 MG TID 01/30 2100 AC 01/31 PO 2023 Tamsulosin HCl 0.4 MG QPM 01/30 2100 AC 01/31 PO 2030 Tiotropium [place] 1 PUF DAILY 01/31 0900 AC 01/31 INH 0932 Trazodone HCl 100 MG AT BEDTIME NEED.. 01/31 0030 AC 01/31 PO 2023 Last 24 Hrs of Lab/Jeffrey Results Last 24 Hrs of Labs/Mics: Laboratory Tests 01/31/18 1130: Troponin I < 0.01 01/31/18 0320: Troponin I 0.03 01/31/18 0320: Anion Gap 11, Estimated GFR > 60, BUN/Creatinine Ratio 18.3, CBC w Diff MAN DIFF ORDERED, RBC 3.93 L, MCV 83.8, MCH 27.9, MCHC 33.3, RDW 15.6 H, MPV 6.7 L, Gran % 91.8 H, Lymphocytes % 6.5 L, Monocytes % 1.5 L, Eosinophils % 0, Basophils % 0.2, Absolute Granulocytes 8.4 H, Segmented Neutrophils 89 H, Band Neutrophils 1, Absolute Lymphocytes 0.6 L, Lymphocytes 9 L, Monocytes 1 L, Absolute Monocytes 0.1, Absolute Eosinophils 0, Absolute Basophils 0, Platelet Estimate INCREASED, Polychromasia 1+, Basophilic Stippling RARE, Ovalocytes FEW, Fld Total RBCs Counted 100 Assessment/Plan Assessment: This is a 72-year-old female with a past medical history significant for COPD, hypertension, migraines, GERD, diabetes, bipolar disorder, myocardial infarction in 2007, asthma, lung cancer diagnosed in 2015 status post chemotherapy and radiation, irritable bowel syndrome, osteoarthritis status post right knee replacement, glaucoma, cataract surgery right eye that is brought in by ambulance for recent worsening respiratory status with a recent severe episode of respiratory distress. She reports orthopnea, lower extremity edema, cough, chest pain affected by inspiration. She takes albuterol and Spiriva nebulizers at home. Left-sided lung cancer and reportedly has a right-sided nodule that is being worked up. 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 She has no current diagnosis of congestive heart failure. In the ED, her vitals were found to be temperature 97.2, pulse 133, respiratory rate 32, but pressure 216/100, pulse ox at first in the field showed 75% saturation on her home oxygen at 2 L. The patient was given a dose of steroids as well as Lasix. Respiratory was contacted and patient was given nebulizer treatments. She was hypertensive so was given nitroglycerin, Lasix helped as well. After receiving BiPAP and the treatments listed, she was satting at 100% on FiO2 of 50%. Her labs showed a WBC of 17.4, hemoglobin 11.5, platelets 480, sodium 132, negative troponin. BNP was 3950. A chest x-ray showed diffuse nonspecific interstitial opacity in both lungs compared to 10/31/17 that could represent cardiogenic pulmonary edema or multilobar pneumonitis. The left upper lobe opacity remains similar in appearance compared to 12/11/2016. Assessment Acute hypoxic respiratory failure likely secondary to COPD/CHF exacerbation, potential contribution of fibrosis secondary to chemotherapy/radiation therapy for lung cancer Right-sided lung nodule currently being worked up by Dr. Krause of [facility], established left sided lung cancer treated with radiation and chemotherapy. Hyponatremia History of diabetes History of hypertension Bipolar disorder with previous suicide attempts (overdose of ASA) Mild hyponatremia resolving Recent finding of small pericardial effusion as per Dr. Alva office records (refer to his note) Plan -Admitted patient to telemetry for evaluation and close monitoring -ABG done yesterday was not suggestive of acute CO2 trapping -Started patient on Solu-Medrol 40 mg every 12 with plan to start 40mg po prednisone tomorrow -BNP elevated. We have started IV lasix 40mg bid and later today after she has been given time to be diuresed, will repeat cxr to evaluate for infiltrate or increase in size of lung/other pathology. -Pulmonology and cardiology consults appreciated, recent stress teset with dr. acuna is normal -LE doppler and echo -TRC/nebs with continuation of BiPAP for now nightly -Serial EKGs and troponins ruled out ACS -Obtain records from Dr. Krause (form has been faxed) of recent CT scan of chest done last tuesday. -Orthostatic vitals -Continue patient home medications -Accu checks, of note patient is not on any home diabetes medications, we will start her on low-dose sliding scale -Leukocytosis resolved Heart healthy diet Patient is full code DVT prophylaxis with Alps and Lovenox Problem List: 1. COPD exacerbation 2. CHF (congestive heart failure) Pain Ratin Pain Location: na Pain Goal: Remain pain free Pain Plan: na Tomorrow's Labs & Rationales: none
--- NOTE | 2018-01-31 13:08 | RADIOLOGY REPORT ---
EXAMINATION: XR CHEST CLINICAL INFORMATION: Shortness of breath. Lower extremity edema. COMPARISON: 01/30/2018 TECHNIQUE: 2 views of the chest were obtained. FINDINGS: There is a right chest wall medication port with IJ catheter terminating in the region of junction of the superior vena cava and right atrium. The interstitial/septal thickening in both lungs has significantly improved compared to 01/30/2018. Small bilateral pleural effusions are seen on the lateral view. Mild cardiomegaly. Again noted is a chronic, streaky opacity in the perihilar region of the left upper lobe. Skeletal findings include multilevel discovertebral degenerative change of the visualized thoracic and lumbar spine. IMPRESSION: Significant interval decrease in the diffuse interstitial opacity. Findings are suggestive of resolving pulmonary edema. Small bilateral pleural effusions are present.
--- NOTE | 2018-01-31 13:10 | ULTRASOUND REPORT ---
EXAMINATION: US TRIPLEX OF LOWER EXTREMITIES, BILATERAL CLINICAL INFORMATION: Lower extremity edema. COMPARISON: None TECHNIQUE: Color-flow triplex imaging with spectral analysis and compression Doppler were performed on the lower extremities. FINDINGS: The common femoral vein is compressible and exhibits a normal phasic waveform, bilaterally; this suggests that the iliac veins are widely patent above. Within each proximal thigh, the visualized profunda femoris vein is patent. The visualized greater saphenous veins and saphenofemoral junctions are normal. Superficial femoral vein is patent in the proximal, mid and distal aspect of each thigh. Popliteal vein appears normal to the level of the trifurcation, bilaterally, and the visualized calf veins are unremarkable. No evidence of Collier's cyst. IMPRESSION: No evidence of deep vein thrombosis in either lower extremity.
--- NOTE | 2018-01-31 14:46 | Patient Discharge Instructions ---
Discharge Instructions General Discharge Information You were seen/treated for: copd/chf exacerbation Special Instructions: please follow up with pcp in one week please follow up with cardiology in on week please follow up with pulmonology in one week Diet Continue normal diet: Yes Activity Full Activity/No Limits: Yes Acute Coronary Syndrome Inclusion Criteria At DC or during hospital stay patient has or had the following: ACS DIAGNOSIS No Discharge Core Measures Meds if any: Prescribed or Continued at Discharge Meds if any: NOT Prescribed or Continued at Discharge Congestive Heart Failure Inclusion Criteria At DC or during hospital stay patient has or had the following: CHF DIAGNOSIS No Discharge Core Measures Meds if any: Prescribed or Continued at Discharge Meds if any: NOT Prescribed or Continued at Discharge Cerebrovascular accident Inclusion Criteria At DC or during hospital stay patient has or had the following: CVA/TIA Diagnosis No Discharge Core Measures Meds if any: Prescribed or Continued at Discharge Meds if any: NOT Prescribed or Continued at Discharge Venous thromboembolism Inclusion Criteria VTE Diagnosis No VTE Type NONE VTE Confirmed by (Test) NONE Discharge Core Measures - Per Current guidelines, there needs to be overlap - treatment for the first 5 days of Warfarin therapy. - If discharged on Warfarin prior to 5 days of - overlap therapy, the patient will need to be - assessed for post discharge needs including - *Post discharge parental anticoagulation - *Warfarin and/or parental anticoagulation education - *Follow up date to check INR post discharge At least 5 days overlap therapy as Inpatient No Meds if any: Prescribed or Continued at Discharge Note: Overlap Therapy is Warfarin and Anticoagulant Meds if any: NOT Prescribed or Continued at Discharge
[2018-01-31 14:59] VITALS: BP 140/76
--- NOTE | 2018-01-31 20:46 | PN- Cardiology ---
Subjective Subjective: * Breathing is improved but not quite to baseline. * chest X-ray improved Objective Vital Signs and I&Os Vital Signs Date Time Temp Pulse Resp B/P B/P Pulse O2 O2 Flow FiO2 Mean Ox Delivery Rate 01/31 2030 76 152/78 01/31 2030 76 152/78 02/01 2008 95 Nasal 2.0L Cannula 01/31 1600 96 Nasal 3.0L Cannula 01/31 1459 98.3 73 22 140/76 97 Nasal Cannula 01/31 1446 Nasal 3.0L Cannula 01/31 0930 82 130/90 01/31 0928 82 130/80 01/31 0800 98 Nasal 3.0L Cannula 01/31 0630 98.9 72 24 144/80 97 Nasal Cannula 01/30 2352 78 168/84 01/30 2350 78 168/84 01/30 2305 98.6 78 22 168 95 Nasal Cannula 01/30 2300 Nasal 3.5L Cannula 01/30 2224 99.0 72 22 158/77 94 Nasal 3.0L Cannula Intake & Output 01/31 1600 01/31 0800 01/31 0000 01/30 1600 01/30 0800 01/30 0000 Intake Total 300 360 360 Output Total 325 489 5376 Balance -350 360 -140 -1100 Intake, Oral 300 360 360 Output, Urine [id number] Patient 211 lb Weight Weight Bed scale Measurement Method Physical Exam: General: WD/overweight female in NAD; alert and oriented x 3 HEENT: NC/AT, PERRL, EOMI Neck: no JVD, no carotid bruit Heart: RRR w/o murmur Lungs: decreased air movement Abdomen: soft, NT, +ve bowel sounds Extremities: no edema Assessment/Plan Assessment/Plan * This patient has an improvement in her breathing and chest X-ray with diuresis. She is not yet at her baseline. Continue Lasix at 40mg IV BID. * The patient has had a prior pericardiac effusion. Repeat an echocardigram. If there is a significant effusion we will need to consider a pericardial window. * I have a low suspicion of ischemia at this point in time. Continue telemetry? Yes
[2018-01-31 22:01] VITALS: BP 146/42
[2018-02-01 06:19] VITALS: BP 136/80
--- NOTE | 2018-02-01 07:22 | ECHOCARDIOGRAM REPORT ---
EDDIE SINGER Age: 72 : 1945 Gender: F Exam Date: 01/31/2018 16:40 Exam Location: [address] Ht (in): 64 Wt (lb): 211 BSA: 2.12 BP: 130 / 90 Ordering Physician: Kell Mendoza MD Referring Physician: Lazaro Burgos MD, PhD Technologist: Karly Weiss [facility] Room Number: 180-02 Indications: Heart failure Rhythm: Sinus Technical Quality: good FINDINGS Left Ventricle Normal left ventricular size, wall thickness and systolic function with no obvious regional wall motion abnormalities. Normal left ventricular diastolic filling pattern for age. The ejection fraction is visually estimated at 80%. Right Ventricle The right ventricle is normal in size and function. Right Atrium The right atrium is normal in size. Left Atrium The left atrium is markedly enlarged. The interatrial septum is intact. Mitral Valve The mitral valve demonstrates mild posterior annular calcification and mild mitral stenosis. There is moderate mitral regurgitation. Aortic Valve Structurally normal aortic valve without significant sclerosis or stenosis. There is moderate aortic regurgitation. Tricuspid Valve The tricuspid valve is normal in structure and function. There is mild tricuspid regurgitation. Pulmonary artery systolic pressure is moderately elevated to 58mmHg. Pulmonic Valve Structurally normal pulmonic valve. There is mild to moderate pulmonic regurgitation. Pericardium Normal pericardium without effusion. No pleural effusion. Great Vessels Normal aortic root dimension. The aortic arch and great vessels are well seen and are normal. CONCLUSIONS 1. Normal EF of 80%. 2. Severe left atrial enlargement. 3. Mild mitral stenosis with moderate mitral regurgitation. 4. Mild tricuspid regurgitation. 5. Moderate aortic regurgitation. 6. Mild to moderate pulmonic regurgitation. 7. Moderate pulmonary hypertension. Lazaro Burgos M.D. (Electronically Signed) Final Date: 01 February 2018 07:16 MEASUREMENTS (Male / Female) Normal Values 2D ECHO LV Diastolic Diameter PLAX 4.9 cm 4.2 - 5.9 / 3.9 - 5.3 cm LV Systolic Diameter PLAX 2.3 cm 2.1 - 4.0 cm LV Fractional Shortening PLAX 53.1 % 25 - 46 % LV Ejection Fraction 2D Teich 83.9 % IVS Diastolic Thickness 0.9 cm LVPW Diastolic Thickness 0.9 cm LV Relative Wall Thickness 0.4 RV Internal Dim ED PLAX 2.2 cm 1.9 - 3.8 cm LVOT Diameter 2.0 cm Aortic Root Diameter 2.2 cm LA Systolic Diameter LX 5.6 cm 3.0 - 4.0 / 2.7 - 3.8 cm LA Volume 69.0 cm 18 - 58 / 22 - 52 cm Ascending Aorta Diameter 3.0 cm DOPPLER AV Peak Velocity 243.0 cm/s AV Peak Gradient 23.6 mmHg AV Mean Velocity 169.0 cm/s AV Mean Gradient 13.0 mmHg AV Velocity Time Integral 50.0 cm LVOT Peak Velocity 134.0 cm/s LVOT Peak Gradient 7.2 mmHg LVOT Mean Velocity 88.1 cm/s LVOT Mean Gradient 4.0 mmHg LVOT Velocity Time Integral 27.2 cm LVOT Stroke Volume 85.5 cm AV Area Cont Eq vti 1.7 cm AV Area Cont Eq pk 1.7 cm MV Peak Velocity 236.0 cm/s MV Peak Gradient 22.3 mmHg MV Mean Velocity 141.0 cm/s MV Mean Gradient 9.5 mmHg Mitral E Point Velocity 221.0 cm/s Mitral A Point Velocity 147.0 cm/s Mitral E to A Ratio 1.5 MV PHT Velocity 246.5 cm/s MV Deceleration [place] 1295.5 cm/s MV Pressure Half Time 57.1 ms MV Area PHT 3.9 cm MV Deceleration Time 164.0 ms TR Peak Velocity 365.0 cm/s TR Peak Gradient 53.3 mmHg Right Atrial Pressure 5.0 mmHg Pulmonary Artery Systolic Pressure 58.3 mmHg Right Ventricular Systolic Pressure 58.3 mmHg PV Peak Velocity 147.0 cm/s PV Peak Gradient 8.6 mmHg PV Mean Velocity 103.0 cm/s PV Mean Gradient 5.0 mmHg PV Velocity Time Integral 31.9 cm LV E' Lateral Velocity 7.8 cm/s Mitral E to LV E' Lateral Ratio 28.3 LV E' Septal Velocity 7.5 cm/s Mitral E to LV E' Septal Ratio 29.6
--- NOTE | 2018-02-01 08:08 | PN- Housestaff ---
Subjective Follow-up For: SHORTNESS OF BREATH Subjective: patient seen and examined. vitals are stable, she is now back to 2L which is her baseline. patient denies chest pain, palpitation or increased shortness of breath . No acute telemetry o/n event. Review of Systems Constitutional: Reports: see HPI. Objective Last 24 Hrs of Vital Signs/I&O Vital Signs Date Time Temp Pulse Resp B/P B/P Pulse O2 O2 Flow FiO2 Mean Ox Delivery Rate 02/01 1109 97 Nasal 2.0L Cannula 02/01 0834 76 130/62 02/01 0834 76 130/62 02/01 0800 Nasal 2.0L Cannula 02/01 0619 98.1 66 19 136/80 97 01/31 2201 98.4 72 20 146/42 95 01/31 2130 Nasal 3.0L Cannula 01/31 2030 76 152/78 01/31 2030 76 152/78 02/01 2008 95 Nasal 2.0L Cannula 01/31 1600 96 Nasal 3.0L Cannula 01/31 1459 98.3 73 22 140/76 97 Nasal Cannula 01/31 1446 Nasal 3.0L Cannula Intake & Output 02/01 1600 02/01 0800 02/01 0000 Intake Total 120 300 Output Total 400 Balance 120 -100 Intake, Oral 120 300 Output, Urine 400 Patient 93.157 kg Weight Physical Exam General Appearance: Alert, Oriented X3, Cooperative Current Medications: Current Medications Sig/Ayaz Start time Last Medication Dose Route Stop Time Status Admin Albuterol Sulfate 3 ML BID 01/31 2100 AC 02/01 INH 1109 Albuterol Sulfate 3 ML Q6H PRN 01/30 1815 DC 01/31 INH 1140 Albuterol Sulfate 2 PUF Q4H PRN 01/30 1815 AC INH Aripiprazole 10 MG DAILY 01/31 09 AC 02/01 PO 0830 Atorvastatin Calcium 10 MG 1700 01/31 1700 AC 01/31 PO 1736 Calcium/Vitamin D 500 MG DAILY 01/31 09 AC 02/01 PO 0832 Cyanocobalamin 1,000 MCG DAILY 01/30 181 AC 02/01 PO 0832 Diclofenac Sodium 1 VEE 4 TIMES/DAY 01/30 181 AC 02/01 TOP 0830 Enoxaparin Sodium 40 MG DAILY 01/30 180 AC 02/01 SC 0828 Escitalopram Oxalate 10 MG DAILY 01/31 09 AC 02/01 PO 0831 Ferrous Sulfate 325 MG DAILY 01/31 09 AC 02/01 PO 0831 Furosemide 40 MG 7:30 AM, & 4:30 PM 01/31 1630 AC 02/01 IV 0822 Gabapentin 300 MG BID 01/30 2100 AC 02/01 PO 0836 Hydrocodone Bitart/ 0 .STK-MED ONE 02/01 218 DC Acetaminophen PO Hydrocodone Bitart/ 1 TAB ONCE PRN 02/01 021 AC 02/01 Acetaminophen PO 0222 Insulin Aspart 0 TIDAC 01/31 08 AC 02/01 SC 1218 Lamotrigine 200 MG BID 01/30 2100 AC 02/01 PO 0831 Latanoprost 1 GTT AT BEDTIME 01/30 2100 AC 01/31 OPH 2023 Loratadine 10 MG DAILY 01/31 09 AC 02/01 PO 0831 Losartan Potassium 50 MG DAILY 01/31 09 AC 02/01 PO 0834 Lubiprostone 8 MCG BID 01/30 2100 AC 02/01 PO 0831 Methylprednisolone 40 MG Q12 01/30 2100 DC 02/01 IV 0822 Metoprolol Tartrate 25 MG BID 01/30 2100 AC 02/01 PO 0834 Nystatin 5 ML 4 TIMES/DAY 01/30 1823 AC 02/01 PO 1218 Omeprazole 40 MG DAILY AC 01/31 07 AC 02/01 PO 0535 Prednisone 40 MG DAILY 02/02 0900 UNVr PO Sodium Chloride 2 SPRAY BID 01/30 2100 AC 02/01 SAM 0828 Sucralfate 1,000 MG TID 01/30 2100 AC 02/01 PO 1218 Tamsulosin HCl 0.4 MG QPM 01/30 2100 AC 01/31 PO 2030 Tiotropium [place] 1 PUF DAILY 01/31 09 AC 02/01 INH 0832 Trazodone HCl 100 MG AT BEDTIME NEED.. 01/31 0030 AC 01/31 PO 2023 Last 24 Hrs of Lab/Jeffrey Results Last 24 Hrs of Labs/Mics: . Assessment/Plan Assessment: 72-year-old female with a past medical history significant for COPD, hypertension, migraines, GERD, diabetes, bipolar disorder, myocardial infarction in 2007, asthma, lung cancer diagnosed in 2015 status post chemotherapy and radiation, irritable bowel syndrome, osteoarthritis status post right knee replacement, glaucoma, cataract surgery right eye that is brought in by ambulance for recent worsening respiratory status with a recent severe episode of respiratory distress. Problem list * Acute hypoxic respiratory failure likely secondary to COPD/CHF exacerbation, potential contribution of fibrosis secondary to chemotherapy/radiation therapy for lung cancer * Right-sided lung nodule currently being worked up by Dr. Krause of [facility], established left sided lung cancer treated with radiation and chemotherapy. * Hyponatremia * History of diabetes * History of hypertension * Bipolar disorder with previous suicide attempts (overdose of ASA) * Mild hyponatremia resolving * Recent finding of small pericardial effusion as per Dr. Alva office records (refer to his note) Plan Pt respiratory status appears improved. ACS had been initally rule out through negative trops and EKG. Her COPDE was being managed by solumedrol IV na nebs. Per pulm recc, will switch to oral prednisone tomorrow morning. An echo was obtained, there is no evidence of pericardial effusion. The elevated ProBNP, and CXR showing resolving pulmonary edema after iv lasix suggest a component of volume as an additional factor of her respiratory distress in addition to her COPD. We will continue with Lasix IV 40 mg bid. We will also await further cardio and pulm reccs. Records for lung nodule workup from Dr. Krause of [facility] , pending. Problem List: 1. COPD exacerbation Pain Ratin Pain Location: none Pain Goal: Pain 4 or less Pain Plan: per pathway Tomorrow's Labs & Rationales: bep
--- NOTE | 2018-02-01 13:18 | PN- Pulmonary ---
Subjective HPI/Critical Care Issues: pt seen and examined feeling much better 97% 2LNC no n/v/d/c no cp Objective Current Medications: Current Medications Sig/Ayaz Start time Last Medication Dose Route Stop Time Status Admin Albuterol Sulfate 3 ML BID 01/31 2100 AC 02/01 INH 1109 Albuterol Sulfate 3 ML Q6H PRN 01/30 1815 DC 01/31 INH 1140 Albuterol Sulfate 2 PUF Q4H PRN 01/30 1815 AC INH Aripiprazole 10 MG DAILY 01/31 09 AC 02/01 PO 0830 Atorvastatin Calcium 10 MG 1700 01/31 1700 AC 01/31 PO 1736 Calcium/Vitamin D 500 MG DAILY 01/31 09 AC 02/01 PO 0832 Cyanocobalamin 1,000 MCG DAILY 01/30 181 AC 02/01 PO 0832 Diclofenac Sodium 1 VEE 4 TIMES/DAY 01/30 181 AC 02/01 TOP 0830 Enoxaparin Sodium 40 MG DAILY 01/30 1808 AC 02/01 SC 0828 Escitalopram Oxalate 10 MG DAILY 01/31 09 AC 02/01 PO 0831 Ferrous Sulfate 325 MG DAILY 01/31 09 AC 02/01 PO 0831 Furosemide 40 MG 7:30 AM, & 4:30 PM 01/31 1630 AC 02/01 IV 0822 Gabapentin 300 MG BID 01/30 2100 AC 02/01 PO 0836 Hydrocodone Bitart/ 0 .STK-MED ONE 02/01 021 DC Acetaminophen PO Hydrocodone Bitart/ 1 TAB ONCE PRN 02/01 0215 AC 02/01 Acetaminophen PO 0222 Insulin Aspart 0 TIDAC 01/31 08 AC 02/01 SC 1218 Lamotrigine 200 MG BID 01/30 2100 AC 02/01 PO 0831 Latanoprost 1 GTT AT BEDTIME 01/30 2100 AC 01/31 OPH 2024 Loratadine 10 MG DAILY 01/31 09 AC 02/01 PO 0831 Losartan Potassium 50 MG DAILY 01/31 09 AC 02/01 PO 0834 Lubiprostone 8 MCG BID 01/30 2100 AC 02/01 PO 0831 Methylprednisolone 40 MG Q12 01/30 2100 AC 02/01 IV 0822 Metoprolol Tartrate 25 MG BID 01/30 2100 AC 02/01 PO 0834 Nystatin 5 ML 4 TIMES/DAY 01/30 1823 AC 02/01 PO 1218 Omeprazole 40 MG DAILY AC 01/31 0700 AC 02/01 PO 0535 Sodium Chloride 2 SPRAY BID 01/30 2100 AC 02/01 SAM 0828 Sucralfate 1,000 MG TID 01/30 2100 AC 02/01 PO 1218 Tamsulosin HCl 0.4 MG QPM 01/30 2100 AC 01/31 PO 2030 Tiotropium [place] 1 PUF DAILY 01/31 0900 AC 02/01 INH 0832 Trazodone HCl 100 MG AT BEDTIME NEED.. 01/31 0030 AC 01/31 PO 2023 Vital Signs & I&O Last 24 Hrs of Vitals and I&O: Vital Signs Date Time Temp Pulse Resp B/P B/P Pulse O2 O2 Flow FiO2 Mean Ox Delivery Rate 02/01 1109 97 Nasal 2.0L Cannula 02/01 0834 76 130/62 02/01 0834 76 130/62 02/01 0800 Nasal 2.0L Cannula 02/01 0619 98.1 66 19 136/80 97 01/31 2201 98.4 72 20 146/42 95 01/31 2130 Nasal 3.0L Cannula 01/31 2030 76 152/78 01/31 2030 76 152/78 01/31 2008 95 Nasal 2.0L Cannula 01/31 1600 96 Nasal 3.0L Cannula 01/31 1459 98.3 73 22 140/76 97 Nasal Cannula 01/31 1446 Nasal 3.0L Cannula Intake & Output 02/01 1600 02/01 0800 02/01 0000 Intake Total 120 300 Output Total 400 Balance 120 -100 Intake, Oral 120 300 Output, Urine 400 Patient 205 lb Weight Exam Other Physical Findings: [id number] heent-nasal cannula cvs-s1,s2 lungs-overall clear abd-soft,bs+ ext-resolved edema Impression/Plan Impression/Plan Impression/Plan: Impression 72 year old woman * leg edema (improved), elevated BNP, cxr with increased markings - consistent with an exacerbation of congestive heart failure * hx of COPD - at baseline oxygen - at home 2-3LNC - mild exacerbation * hx of lung ca Plan -f/u recommendations from Dr. Burgos including ECHO -obtain records from [facility] (Dr. Krause) - pt had a CT scan of chest last week for lung ca follow up -TRC, continue inhalers -dc solumedrol - received IV - can do prednisone 40mg po x 3 more days then stop without a taper -fio2 goal >92% DVT prophylaxis at all times
[2018-02-01 14:01] VITALS: BP 142/78
--- NOTE | 2018-02-01 15:11 | PN- Att Addend ---
Attending Addendum Attending Brief Note Patient looking and feeling better. Breathing better., Still on oxygen but the patient uses oxygen at home too. Vital signs are stable no fever. Better air entry but still decreased breath sounds. A few crackles still heard. No other changes. Chest x-ray showed improvement. Appreciate pulmonary's input and also the patient will have an echocardiogram and then cardiology can assess the type of congestive heart failure the patient had when she was admitted.. 24 TOTALS 02/01 0000 01/31 0000 Intake Total 960 360 Output Total 1050 1600 Balance -90 -1240 Intake, Oral 960 360 Output, Urine 1050 1600 Patient 205 lb 211 lb Weight Weight Bed scale Measurement Method Current Medications Sig/Ayaz Start time Last Medication Dose Route Stop Time Status Admin Albuterol Sulfate 3 ML BID 01/31 2100 AC 02/01 INH 1109 Albuterol Sulfate 2 PUF Q4H PRN 01/30 181 AC INH Aripiprazole 10 MG DAILY 01/31 09 AC 02/01 PO 0830 Atorvastatin Calcium 10 MG 1700 01/31 1700 AC 01/31 PO 1736 Calcium/Vitamin D 500 MG DAILY 01/31 09 AC 02/01 PO 0832 Cyanocobalamin 1,000 MCG DAILY 01/30 1812 AC 02/01 PO 0832 Diclofenac Sodium 1 VEE 4 TIMES/DAY 01/30 181 AC 02/01 TOP 0830 Enoxaparin Sodium 40 MG DAILY 01/30 1808 AC 02/01 SC 0828 Escitalopram Oxalate 10 MG DAILY 01/31 0900 AC 02/01 PO 0831 Ferrous Sulfate 325 MG DAILY 01/31 09 AC 02/01 PO 0831 Furosemide 40 MG 7:30 AM, & 4:30 PM 01/31 1630 AC 02/01 IV 0822 Gabapentin 300 MG BID 01/30 2100 AC 02/01 PO 0836 Hydrocodone Bitart/ 0 .STK-MED ONE 02/01 218 DC Acetaminophen PO Hydrocodone Bitart/ 1 TAB ONCE PRN 02/01 021 AC 02/01 Acetaminophen PO 0222 Insulin Aspart 0 TIDAC 01/31 08 AC 02/01 SC 1218 Lamotrigine 200 MG BID 01/30 2100 AC 02/01 PO 0831 Latanoprost 1 GTT AT BEDTIME 01/30 2100 AC 01/31 OPH 2024 Loratadine 10 MG DAILY 01/31 09 AC 02/01 PO 0831 Losartan Potassium 50 MG DAILY 01/31 09 AC 02/01 PO 0834 Lubiprostone 8 MCG BID 01/30 2100 AC 02/01 PO 0831 Methylprednisolone 40 MG Q12 01/30 2100 DC 02/01 IV 0822 Metoprolol Tartrate 25 MG BID 01/30 2100 AC 02/01 PO 0834 Nystatin 5 ML 4 TIMES/DAY 01/30 1823 AC 02/01 PO 1218 Omeprazole 40 MG DAILY AC 01/31 07 AC 02/01 PO 0535 Prednisone 40 MG DAILY 02/02 09 AC PO Sodium Chloride 2 SPRAY BID 01/30 2100 AC 02/01 SAM 0828 Sucralfate 1,000 MG TID 01/30 2100 AC 02/01 PO 1218 Tamsulosin HCl 0.4 MG QPM 01/30 2100 AC 01/31 PO 2030 Tiotropium [place] 1 PUF DAILY 01/31 900 AC 02/01 INH 0832 Trazodone HCl 100 MG AT BEDTIME NEED.. 01/31 0030 AC 01/31 PO 2023 Laboratory Tests 01/31/18 1130: Troponin I < 0.01 01/31/18 0320: Troponin I 0.03 01/31/18 0320: Anion Gap 11, Estimated GFR > 60, BUN/Creatinine Ratio 18.3, CBC w Diff MAN DIFF ORDERED, RBC 3.93 L, MCV 83.8, MCH 27.9, MCHC 33.3, RDW 15.6 H, MPV 6.7 L, Gran % 91.8 H, Lymphocytes % 6.5 L, Monocytes % 1.5 L, Eosinophils % 0, Basophils % 0.2, Absolute Granulocytes 8.4 H, Segmented Neutrophils 89 H, Band Neutrophils 1, Absolute Lymphocytes 0.6 L, Lymphocytes 9 L, Monocytes 1 L, Absolute Monocytes 0.1, Absolute Eosinophils 0, Absolute Basophils 0, Platelet Estimate INCREASED, Polychromasia 1+, Basophilic Stippling RARE, Ovalocytes FEW, Fld Total RBCs Counted 100 01/30/181954: pH 7.47 H, pCO2 41, pO2 91, HCO3 29 H, ABG O2 Sat (Measured) 97.0, P-50 (Temp Corrected) N, Carboxyhemoglobin 0.3 L, O2 Concentration % 3.5L, Temperature 98.8, O2 Delivery Method NC, Phlebotomy Draw Site RIGHT BRACHIAL 01/30/18 1935: Troponin I 0.04 Vital Signs Date Time Temp Pulse Resp B/P B/P Pulse O2 O2 Flow FiO2 Mean Ox Delivery Rate 02/01 1401 98.3 68 18 142/78 96 02/01 1109 97 Nasal 2.0L Cannula 02/01 0834 76 130/62 02/01 0834 76 130/62 02/01 0800 Nasal 2.0L Cannula 02/01 0619 98.1 66 19 136/80 97 01/31 2201 98.4 72 20 146/42 95 01/31 2130 Nasal 3.0L Cannula 01/31 2030 76 152/78 01/31 2030 76 152/78 01/31 2008 95 Nasal 2.0L Cannula 01/31 1600 96 Nasal 3.0L Cannula
--- NOTE | 2018-02-01 18:26 | PN- Cardiology ---
Subjective Subjective: * Breathing has improved to baseline. * Normal EF on echo with valvular disease. Objective Vital Signs and I&Os Vital Signs Date Time Temp Pulse Resp B/P B/P Pulse O2 O2 Flow FiO2 Mean Ox Delivery Rate 02/01 1401 98.3 68 18 142/78 96 02/01 1109 97 Nasal 2.0L Cannula 02/01 0834 76 130/62 02/01 0834 76 130/62 02/01 0800 Nasal 2.0L Cannula 02/01 0619 98.1 66 19 136/80 97 01/31 2201 98.4 72 20 146/42 95 01/31 2130 Nasal 3.0L Cannula 01/31 2030 76 152/78 01/31 2030 76 152/78 02/01 2008 95 Nasal 2.0L Cannula Intake & Output 02/01 1600 02/01 0800 02/01 0000 01/31 1600 01/31 0800 01/31 0000 Intake Total 765 120 300 300 360 360 Output Total 600 400 650 500 Balance 165 120 -100 -350 360 -140 Intake, IV 15 Intake, Oral 750 120 300 300 360 360 Output, Urine 600 400 650 500 Patient 205 lb Weight Physical Exam: General: WD/overweight female in NAD; alert and oriented x 3 HEENT: NC/AT, PERRL, EOMI Neck: no JVD, no carotid bruit Heart: RRR w/o murmur Lungs: no crackles or wheezing Abdomen: soft, NT, +ve bowel sounds Extremities: no edema Assessment/Plan Assessment/Plan * This patient has an improvement in her breathing and chest X-ray with diuresis. She is now at her baseline. ChangeLasix to 40mg PO BID. * The patient has had a prior pericardial effusion but this appears to have resolved on her current echocardiogram. Continue telemetry? Yes
[2018-02-01 21:47] VITALS: BP 142/72
[2018-02-02 06:46] VITALS: BP 148/68
--- NOTE | 2018-02-02 10:24 | PN- Att Addend ---
Attending Addendum Attending Brief Note Patient feeling and looking much better sitting in the chair, not short of breath. Wearing her oxygen but she uses oxygen at home Vital signs are stable no fever. Lungs little bit better air entry. Patient on p.o. diuretics now. Appreciate cardiology and pulmonary's input and recommendations. We will start disposition plans for the patient to go home. To follow the patient has outpatient with cardiology pulmonary and myself. See the CMR. Intake & Output 02/02 1600 02/02 0400 02/01 1600 02/01 0400 01/31 1600 01/31 0400 Intake Total 120 120 885 300 660 360 Output Total 500 600 400 650 500 Balance -380 120 285 -100 10 -140 Intake, IV 15 Intake, Oral 120 120 870 300 660 360 Output, Urine 500 600 400 650 500 Patient 205 lb Weight Current Medications Sig/Ayaz Start time Last Medication Dose Route Stop Time Status Admin Albuterol Sulfate 3 ML BID 01/31 2100 AC 02/01 INH 1825 Albuterol Sulfate 2 PUF Q4H PRN 01/30 181 AC INH Aripiprazole 10 MG DAILY 01/31 09 AC 02/01 PO 0830 Atorvastatin Calcium 10 MG 1700 01/31 1700 AC 02/01 PO 1719 Calcium/Vitamin D 500 MG DAILY 01/31 09 AC 02/01 PO 0832 Cyanocobalamin 1,000 MCG DAILY 01/30 181 AC 02/01 PO 0832 Diclofenac Sodium 1 VEE 4 TIMES/DAY 01/30 181 AC 02/01 TOP 2124 Diphenhydramine HCl 0 .STK-MED ONE 02/01 2040 DC PO Enoxaparin Sodium 40 MG DAILY 01/30 1808 AC 02/01 SC 0828 Escitalopram Oxalate 10 MG DAILY 01/31 09 AC 02/01 PO 0831 Ferrous Sulfate 325 MG DAILY 01/31 09 AC 02/01 PO 0831 Furosemide 40 MG 7:30 AM, & 4:30 PM 02/02 0730 AC 02/02 PO 0746 Furosemide 40 MG 7:30 AM, & 4:30 PM 02/01 1845 DC PO Furosemide 40 MG 7:30 AM, & 4:30 PM 01/31 1630 DC 02/01 IV 1719 Gabapentin 300 MG BID 01/30 2100 AC 02/01 PO 2123 Hydrocodone Bitart/ 1 TAB ONCE PRN 02/01 0215 AC 02/01 Acetaminophen PO 0222 Insulin Aspart 0 TIDAC 01/31 0800 AC 02/01 SC 1719 Lamotrigine 200 MG BID 01/30 2100 AC 02/01 PO 212 Latanoprost 1 GTT AT BEDTIME 01/30 2100 AC 02/01 OPH 2124 Loratadine 10 MG DAILY 01/31 0900 AC 02/01 PO 0831 Losartan Potassium 50 MG DAILY 01/31 0900 AC 02/01 PO 0834 Lubiprostone 8 MCG BID 01/30 2100 AC 02/01 PO 2125 Methylprednisolone 40 MG Q12 01/30 2100 DC 02/01 IV 0822 Metoprolol Tartrate 25 MG BID 01/30 2100 AC 02/01 PO 212 Nystatin 5 ML 4 TIMES/DAY 01/30 1823 AC 02/01 PO 212 Omeprazole 40 MG DAILY AC 01/31 0700 AC 02/02 PO 0601 Prednisone 40 MG DAILY 02/02 0900 AC PO Sodium Chloride 2 SPRAY BID 01/30 2100 AC 02/01 SAM 2123 Sucralfate 1,000 MG TID 01/30 2100 AC 02/01 PO 2123 Tamsulosin HCl 0.4 MG QPM 01/30 2100 AC 02/01 PO 212 Tiotropium [place] 1 PUF DAILY 01/31 09 AC 02/01 INH 0832 Trazodone HCl 100 MG AT BEDTIME NEED.. 01/31 0030 AC 01/31 PO 2023 Laboratory Tests 02/02/18 0625: Anion Gap 9, Estimated GFR > 60, BUN/Creatinine Ratio 22.9 01/31/18 1130: Troponin I < 0.01 01/31/18 0320: Troponin I 0.03 01/31/18 0320: Anion Gap 11, Estimated GFR > 60, BUN/Creatinine Ratio 18.3, CBC w Diff MAN DIFF ORDERED, RBC 3.93 L, MCV 83.8, MCH 27.9, MCHC 33.3, RDW 15.6 H, MPV 6.7 L, Gran % 91.8 H, Lymphocytes % 6.5 L, Monocytes % 1.5 L, Eosinophils % 0, Basophils % 0.2, Absolute Granulocytes 8.4 H, Segmented Neutrophils 89 H, Band Neutrophils 1, Absolute Lymphocytes 0.6 L, Lymphocytes 9 L, Monocytes 1 L, Absolute Monocytes 0.1, Absolute Eosinophils 0, Absolute Basophils 0, Platelet Estimate INCREASED, Polychromasia 1+, Basophilic Stippling RARE, Ovalocytes FEW, Fld Total RBCs Counted 100 01/30/181954: pH 7.47 H, pCO2 41, pO2 91, HCO3 29 H, ABG O2 Sat (Measured) 97.0, P-50 (Temp Corrected) N, Carboxyhemoglobin 0.3 L, O2 Concentration % 3.5L, Temperature 98.8, O2 Delivery Method NC, Phlebotomy Draw Site RIGHT BRACHIAL 01/30/181934: Troponin I 0.04 Vital Signs Date Time Temp Pulse Resp B/P B/P Pulse O2 O2 Flow FiO2 Mean Ox Delivery Rate 02/02 0646 97.9 61 18 148/68 97 Nasal 2.0L Cannula 02/02 0000 Nasal 2.0L Cannula 02/01 2147 98.2 68 12 142/72 97 Nasal 2.0L Cannula 02/01 2125 130/72 02/01 2125 78 130/72 02/01 1825 97 Nasal 2.0L Cannula 02/01 1600 96 Nasal 2.0L Cannula 02/01 1401 98.3 68 18 142/78 96 02/01 1109 97 Nasal 2.0L Cannula
[2018-02-02] MEDS ORDERED: FUROSEMIDE40 M1 PO (10:51)
[2018-02-02 14:36] VITALS: BP 118/64
[2018-02-02 17:00] VITALS: BP 100/60
--- NOTE | 2018-02-02 17:17 | PN- Pulmonary ---
Subjective HPI/Critical Care Issues: pt seen and examined returned to respiratory baseline awaiting dc no n/v/d/c, no rajput, no cp, afebrile Objective Current Medications: Current Medications Sig/Ayaz Start time Last Medication Dose Route Stop Time Status Admin Albuterol Sulfate 3 ML BID 01/31 INH 1101 Albuterol Sulfate 2 PUF Q4H PRN 01/30 1815 AC INH Aripiprazole 10 MG DAILY 01/31 09 AC 02/02 PO 1038 Atorvastatin Calcium 10 MG 1700 01/31 1700 AC 02/02 PO 1702 Calcium/Vitamin D 500 MG DAILY 01/31 09 AC 02/02 PO 1037 Cyanocobalamin 1,000 MCG DAILY 01/30 181 AC 02/02 PO 1038 Diclofenac Sodium 1 VEE 4 TIMES/DAY 01/30 181 AC 02/02 TOP 1707 Diphenhydramine HCl 0 .STK-MED ONE 02/01 2040 DC PO Enoxaparin Sodium 40 MG DAILY 01/30 180 AC 02/02 SC 1041 Escitalopram Oxalate 10 MG DAILY 01/31 09 AC 02/02 PO 1038 Ferrous Sulfate 325 MG DAILY 01/31 09 AC 02/02 PO 1037 Furosemide 40 MG 7:30 AM, & 4:30 PM 02/02 0730 AC 02/02 PO 0746 Furosemide 40 MG 7:30 AM, & 4:30 PM 02/01 1845 DC PO Furosemide 40 MG 7:30 AM, & 4:30 PM 01/31 1630 DC 02/01 IV 1719 Gabapentin 300 MG BID 01/30 2100 AC 02/02 PO 1038 Hydrocodone Bitart/ 1 TAB ONCE PRN 02/01 0215 AC 02/01 Acetaminophen PO 0222 Insulin Aspart 0 TIDAC 01/31 08 AC 02/01 SC 1719 Lamotrigine 200 MG BID 01/30 2100 AC 02/02 PO 1038 Latanoprost 1 GTT AT BEDTIME 01/30 OPH 2124 Loratadine 10 MG DAILY 01/31 900 AC 02/02 PO 1041 Losartan Potassium 50 MG DAILY 01/31 09 AC 02/02 PO 1040 Lubiprostone 8 MCG BID 01/30 2100 AC 02/02 PO 1040 Metoprolol Tartrate 25 MG BID 01/30 2100 AC 02/02 PO 1041 Nystatin 5 ML 4 TIMES/DAY 01/30 1823 AC 02/02 PO 1704 Omeprazole 40 MG DAILY AC 01/31 0700 AC 02/02 PO 0601 Prednisone 40 MG DAILY 02/02 0900 AC 02/02 PO 1038 Sodium Chloride 2 SPRAY BID 01/30 2100 AC 02/02 SAM 1039 Sucralfate 1,000 MG TID 01/30 2100 AC 02/02 PO 1301 Tamsulosin HCl 0.4 MG QPM 01/30 2100 AC 02/01 PO 2125 Tiotropium [place] 1 PUF DAILY 01/31 09 AC 02/02 INH 1039 Trazodone HCl 100 MG AT BEDTIME NEED.. 01/31 0030 AC 02/02 PO 1038 Vital Signs & I&O Last 24 Hrs of Vitals and I&O: Vital Signs Date Time Temp Pulse Resp B/P B/P Pulse O2 O2 Flow FiO2 Mean Ox Delivery Rate 02/02 1436 97.7 74 18 118/64 97 Room Air 02/02 1100 97 Nasal 2.0L Cannula 02/02 1041 97.9 61 18 148/68 02/02 1040 97.9 61 18 148/68 02/02 0800 Nasal 2.0L Cannula 02/02 0646 97.9 61 18 148/68 97 Nasal 2.0L Cannula 02/02 0000 Nasal 2.0L Cannula 02/01 2147 98.2 68 12 142/72 97 Nasal 2.0L Cannula 02/01 2125 130/72 02/01 2125 78 130/72 02/01 1825 97 Nasal 2.0L Cannula Intake & Output 02/02 1600 02/02 0800 02/02 0000 Intake Total 680 120 120 Output Total 500 Balance 680 -380 120 Intake, Oral 680 120 120 Output, Urine 500 Exam Other Physical Findings: [id number] heent-nasal cannula cvs-s1,s2 lungs-overall clear abd-soft,bs+ ext-resolved edema Results Last 24 Hrs of Lab Results: Laboratory Tests 02/02/18 0625: Anion Gap 9, Estimated GFR > 60, BUN/Creatinine Ratio 22.9 Impression/Plan Impression/Plan Impression/Plan: Impression 72 year old woman * leg edema (improved), elevated BNP, cxr with increased markings - consistent with an exacerbation of congestive heart failure * hx of COPD - at baseline oxygen - at home 2-3LNC - mild exacerbation * hx of lung ca Plan -f/u cardiology, oncology, pulmonology as outpatient -sees- [facility] (Dr. Krause) - pt had a CT scan of chest last week for lung ca follow up -continue inhalers -completed prednisone as ordered -fio2 goal >92% DVT prophylaxis at all times
[2018-02-02 18:02] VITALS: BP 100/60
--- NOTE | 2018-02-02 18:48 | PN- Cardiology ---
Subjective Subjective: * Patient is breathing well but is a bit lightheaded upon arising. * normal BUN and creatinine Objective Vital Signs and I&Os Vital Signs Date Time Temp Pulse Resp B/P B/P Pulse O2 O2 Flow FiO2 Mean Ox Delivery Rate 02/02 1802 75 100/60 02/02 1700 91 100/60 02/02 1600 Nasal 2.0L Cannula 02/02 1436 97.7 74 18 118/64 97 Room Air 02/02 1100 97 Nasal 2.0L Cannula 02/02 1041 97.9 61 18 148/68 02/02 1040 97.9 61 18 148/68 02/02 0800 Nasal 2.0L Cannula 02/02 0646 97.9 61 18 148/68 97 Nasal 2.0L Cannula 02/02 0000 Nasal 2.0L Cannula 02/01 2147 98.2 68 12 142/72 97 Nasal 2.0L Cannula 02/01 2125 130/72 02/01 2125 78 130/72 Intake & Output 02/02 1600 02/02 0800 02/02 0000 02/01 1600 02/01 0800 02/01 0000 Intake Total 680 120 120 765 120 300 Output Total 500 600 400 Balance 680 -380 120 165 120 -100 Intake, IV 15 Intake, Oral 680 120 120 750 120 300 Output, Urine 500 600 400 Patient 205 lb Weight Physical Exam: General: WD/overweight female in NAD; alert and oriented x 3 HEENT: NC/AT, PERRL, EOMI Neck: no JVD, no carotid bruit Heart: RRR w/o murmur Lungs: no crackles or wheezing Abdomen: soft, NT, +ve bowel sounds Extremities: no edema Assessment/Plan Assessment/Plan * This patient has an improvement in her breathing and chest X-ray with diuresis. She is now at her baseline. In consideration of her lightheadedness we will decrease her Lasix to 40mg once daily. If she is not orthostatic tomorrow she can be discharge to home with follow up in the office. * The patient has had a prior pericardial effusion but this appears to have resolved on her current echocardiogram. Continue telemetry? Yes
--- NOTE | 2018-02-02 18:58 | PN- Housestaff ---
Subjective Follow-up For: AECOPD DYSPNEA ORTHOSTATIC POSITIVE Subjective: Seen and examined at bedside, reports feeling light headed Denies increased shortness of breath,cp/palpitation No acute o/n telemetry events Review of Systems Constitutional: Reports: no symptoms. Objective Last 24 Hrs of Vital Signs/I&O Vital Signs Date Time Temp Pulse Resp B/P B/P Pulse O2 O2 Flow FiO2 Mean Ox Delivery Rate 02/02 1802 75 100/60 02/02 1700 91 100/60 02/02 1600 Nasal 2.0L Cannula 02/02 1436 97.7 74 18 118/64 97 Room Air 02/02 1100 97 Nasal 2.0L Cannula 02/02 1041 97.9 61 18 148/68 02/02 1040 97.9 61 18 148/68 02/02 0800 Nasal 2.0L Cannula 02/02 0646 97.9 61 18 148/68 97 Nasal 2.0L Cannula 02/02 0000 Nasal 2.0L Cannula 02/01 2147 98.2 68 12 142/72 97 Nasal 2.0L Cannula 02/01 2125 130/72 02/01 2125 78 130/72 Intake & Output 02/02 1600 02/02 0800 02/02 0000 Intake Total 680 120 120 Output Total 500 Balance 680 -380 120 Intake, Oral 680 120 120 Output, Urine 500 Physical Exam General Appearance: Alert, Oriented X3, Cooperative Cardiovascular: Regular Rate, Normal S1, Normal S2 Lungs: Clear to Auscultation, Normal Air Movement Abdomen: Normal Bowel Sounds, Soft, No Tenderness Neurological: Normal Gait, Normal Speech, Normal Tone, Sensation Intact Extremities: No Edema Assessment/Plan Assessment: 72-year-old female with a past medical history significant for COPD, hypertension, migraines, GERD, diabetes, bipolar disorder, myocardial infarction in 2008, asthma, lung cancer diagnosed in 2015 status post chemotherapy and radiation, irritable bowel syndrome, osteoarthritis status post right knee replacement, glaucoma, cataract surgery right eye that is brought in by ambulance for recent worsening respiratory status with a recent severe episode of respiratory distress. Problem list * Acute hypoxic respiratory failure likely secondary to COPD/CHF exacerbation, potential contribution of fibrosis secondary to chemotherapy/radiation therapy for lung cancer * Right-sided lung nodule currently being worked up by Dr. Krause of [facility], established left sided lung cancer treated with radiation and chemotherapy. * Hyponatremia * History of diabetes * History of hypertension * Bipolar disorder with previous suicide attempts (overdose of ASA) * Mild hyponatremia resolving * Recent finding of small pericardial effusion as per Dr. Alva office records (refer to his note) Plan Pt respiratory status has clinically improved compared to previous days as she feel less short of breath. Her lasix has been transitioned to oral 40mg bid per cardio reccomendation. However, today earlier in the morning, she reported feeling light headed. Orthostatics were done and were positive with a systolic drop of almost 30 when standing up. This most likley could be 2/2 to the fluid changes from the diuresis with Lasix. Given these findings, she is not medically stable for discharge until her orthostatic hypotension is addressed and resolved. We will also await further cardio reccomendations on possibly decreased lasix dosde. Will also await furtehr pulm reccs. Records for lung nodule workup from Dr. Krause of [facility], pending. Anticipated discharge tomorrow if pt orthostatics are unremarkable. Problem List: 1. COPD exacerbation 2. Orthostatic lightheadedness Pain Ratin Pain Location: none Pain Goal: Remain pain free Pain Plan: per pathway Tomorrow's Labs & Rationales: bep
[2018-02-02 22:05] VITALS: BP 102/58
[2018-02-03 06:35] VITALS: BP 112/68
--- NOTE | 2018-02-03 07:33 | PN- Housestaff ---
Subjective Follow-up For: AECOPD Review of Systems Constitutional: Reports: see HPI. Objective Last 24 Hrs of Vital Signs/I&O Vital Signs Date Time Temp Pulse Resp B/P B/P Pulse O2 O2 Flow FiO2 Mean Ox Delivery Rate 02/03 0635 98.1 71 18 112/68 92 Room Air 02/03 0000 Nasal 2.0L Cannula 02/02 2205 97.6 68 20 102/58 98 Nasal Cannula 02/02 203 64 102/58 02/02 2032 64 102/58 02/02 2018 96 Nasal 2.0L Cannula 02/02 1802 75 100/60 02/02 1700 91 100/60 02/02 1600 Nasal 2.0L Cannula 02/02 1436 97.7 74 18 118/64 97 Room Air 02/02 1100 97 Nasal 2.0L Cannula 02/02 1041 97.9 61 18 148/68 02/02 1040 97.9 61 18 148/68 02/02 0800 Nasal 2.0L Cannula Intake & Output 02/03 0800 02/03 0000 02/02 1600 Intake Total 120 370 680 Output Total 400 1050 Balance -280 -680 680 Intake, Oral 120 370 680 Output, Urine 400 1050 Patient 92.533 kg Weight Weight Bed scale Measurement Method Physical Exam General Appearance: Alert, Oriented X3, Cooperative Cardiovascular: Regular Rate, Normal S1, Normal S2 Assessment/Plan Assessment: 72-year-old female with a past medical history significant for COPD, hypertension, migraines, GERD, diabetes, bipolar disorder, myocardial infarction in 2007, asthma, lung cancer diagnosed in 2015 status post chemotherapy and radiation, irritable bowel syndrome, osteoarthritis status post right knee replacement, glaucoma, cataract surgery right eye that is brought in by ambulance for recent worsening respiratory status with a recent severe episode of respiratory distress. Problem list * Acute hypoxic respiratory failure likely secondary to COPD/CHF exacerbation, potential contribution of fibrosis secondary to chemotherapy/radiation therapy for lung cancer * Right-sided lung nodule currently being worked up by Dr. Krause of [facility], established left sided lung cancer treated with radiation and chemotherapy. * Hyponatremia * History of diabetes * History of hypertension * Bipolar disorder with previous suicide attempts (overdose of ASA) * Mild hyponatremia resolving * Recent finding of small pericardial effusion as per Dr. Alva office records (refer to his note) Problem List: 1. Orthostatic lightheadedness 2. COPD exacerbation Pain Ratin Pain Location: per pathway Pain Goal: Pain 4 or less Pain Plan: per pathway Tomorrow's Labs & Rationales: christopher-discharge
[2018-02-03] MEDS ORDERED: FUROSEMIDE40 M1 PO (11:43)
[2018-02-03 11:48] VITALS: BP 108/58
--- NOTE | 2018-02-03 13:05 | PN- Att Addend ---
Attending Addendum Attending Brief Note Patient did not go home yesterday because she was lightheaded and when the vital signs were obtained was found to be orthostatic. The diuretic doses were adjusted down. Today patient feels better. Nurse about to check her orthostatic blood pressures if there is no drop in the blood pressure then will start disposition plans for the patient to go home today. Intake & Output 02/03 1600 02/03 0400 02/02 1600 02/02 0400 02/01 1600 02/01 040 Intake Total 120 370 800 120 885 300 Output Total 400 1050 500 600 400 Balance -280 -680 300 120 285 -100 Intake, IV 15 Intake, Oral 120 370 800 120 870 300 Output, Urine 400 1050 500 600 400 Patient 204 lb 205 lb Weight Weight Bed scale Measurement Method Current Medications Sig/Ayaz Start time Last Medication Dose Route Stop Time Status Admin Albuterol Sulfate 3 ML BID 01/31 2100 AC 02/03 INH 1041 Albuterol Sulfate 2 PUF Q4H PRN 01/30 1815 AC INH Aripiprazole 10 MG DAILY 01/31 900 AC 02/03 PO 0940 Atorvastatin Calcium 10 MG 1700 01/31 1700 AC 02/02 PO 1702 Benzocaine 1 VEE Q4 HRS NEEDED PRN 02/02 2115 AC 02/03 TOP 0548 Calcium/Vitamin D 500 MG DAILY 01/31 900 AC 02/03 PO 0942 Cyanocobalamin 1,000 MCG DAILY 01/30 181 AC 02/03 PO 0940 Diclofenac Sodium 1 VEE 4 TIMES/DAY 01/30 181 AC 02/03 TOP 0937 Diphenhydramine HCl 0 .STK-MED ONE 02/02 2022 DC PO Enoxaparin Sodium 40 MG DAILY 01/30 180 AC 02/03 SC 0947 Escitalopram Oxalate 10 MG DAILY 01/31 900 AC 02/03 PO 0941 Ferrous Sulfate 325 MG DAILY 01/31 900 AC 02/03 PO 0941 Furosemide 40 MG DAILY 02/03 900 AC 02/03 PO 0941 Furosemide 40 MG 7:30 AM, & 4:30 PM 02/02 07 DC 02/02 PO 0746 Gabapentin 300 MG BID 01/30 2100 AC 02/03 PO 0941 Hydrocodone Bitart/ 1 TAB ONCE PRN 02/01 0215 AC 02/01 Acetaminophen PO 0222 Insulin Aspart 0 TIDAC 01/31 0800 AC 02/02 SC 1725 Lamotrigine 200 MG BID 01/30 2100 AC 02/03 PO 0941 Latanoprost 1 GTT AT BEDTIME 01/30 2100 AC 02/02 OPH 2033 Loratadine 10 MG DAILY 01/31 0900 AC 02/03 PO 0941 Losartan Potassium 50 MG DAILY 01/31 0900 AC 02/03 PO 0945 Lubiprostone 8 MCG BID 01/30 2100 AC 02/03 PO 0940 Metoprolol Tartrate 25 MG BID 01/30 2100 AC 02/03 PO 0945 Nystatin 5 ML 4 TIMES/DAY 01/30 1823 AC 02/03 PO 0939 Omeprazole 40 MG DAILY AC 01/31 0700 AC 02/03 PO 0548 Patient Medication 1 ED ONE ONE 02/03 1315 AC Teaching ED 02/03 1316 Prednisone 40 MG DAILY 02/02 0900 AC 02/03 PO 0942 Sodium Chloride 2 SPRAY BID 01/30 2100 AC 02/03 SAM 0939 Sucralfate 1,000 MG TID 01/30 2100 AC 02/03 PO 0940 Tamsulosin HCl 0.4 MG QPM 01/30 2100 AC 02/02 PO 2032 Tiotropium [place] 1 PUF DAILY 01/31 0900 AC 02/03 INH 0947 Trazodone HCl 100 MG AT BEDTIME NEED.. 01/31 0030 AC 02/02 PO 1038 Laboratory Tests 02/02/ 0625: Anion Gap 9, Estimated GFR > 60, BUN/Creatinine Ratio 22.9 Vital Signs Date Time Temp Pulse Resp B/P B/P Pulse O2 O2 Flow FiO2 Mean Ox Delivery Rate 02/03 1148 70 108/58 02/03 1042 99 Nasal 2.0L Cannula 02/03 0945 75 138/68 02/03 0945 75 138/68 02/03 0800 Nasal 2.0L Cannula 02/03 0635 98.1 71 18 112/68 92 Room Air 02/03 0000 Nasal 2.0L Cannula 02/02 2205 97.6 68 20 102/58 98 Nasal Cannula 02/023 64 102/58 02/03 2032 64 102/58 02/02 2018 96 Nasal 2.0L Cannula 02/02 1802 75 100/60 02/02 1700 91 100/60 02/02 1600 Nasal 2.0L Cannula 02/02 1436 97.7 74 18 118/64 97 Room Air
--- NOTE | 2018-02-03 17:41 | PN- Cardiology ---
Subjective Subjective: * Breathing is much improved. Patient ambulated without lightheadedness. Objective Vital Signs and I&Os Vital Signs Date Time Temp Pulse Resp B/P B/P Pulse O2 O2 Flow FiO2 Mean Ox Delivery Rate 02/03 1148 70 108/58 02/03 1042 99 Nasal 2.0L Cannula 02/03 0945 75 138/68 02/03 0945 75 138/68 02/03 0800 Nasal 2.0L Cannula 02/03 0635 98.1 71 18 112/68 92 Room Air 02/03 0000 Nasal 2.0L Cannula 02/02 2205 97.6 68 20 102/58 98 Nasal Cannula 02/02 2033 64 102/58 02/02 2032 64 102/58 02/02 2018 96 Nasal 2.0L Cannula 02/02 1802 75 100/60 Intake & Output 02/03 1600 02/03 0800 02/03 0000 02/02 1600 02/02 0800 02/02 0000 Intake Total 120 370 680 120 120 Output Total 400 1050 500 Balance -280 -680 680 -380 120 Intake, Oral 120 370 680 120 120 Output, Urine 400 1050 500 Patient 204 lb Weight Weight Bed scale Measurement Method Physical Exam: General: WD/overweight female in NAD; alert and oriented x 3 HEENT: NC/AT, PERRL, EOMI Neck: no JVD, no carotid bruit Heart: RRR w/o murmur Lungs: no crackles or wheezing Abdomen: soft, NT, +ve bowel sounds Extremities: no edema Assessment/Plan Assessment/Plan * This patient has an improvement in her breathing and chest X-ray with diuresis. She is now at her baseline. In consideration of her lightheadedness we will decrease her Lasix to 40mg once daily. If she is not orthostatic jay she can be discharge to home with follow up in the office. * The patient has had a prior pericardial effusion but this appears to have resolved on her current echocardiogram. Continue telemetry? No
--- NOTE | 2018-02-08 18:12 | Discharge Summary ---
Visit Information Visit Dates Admission Date: 01/30/18 Discharge Date: 02/03/18 Hospital Course Course Attending Physician: Aden Cullen MD Primary Care Physician: Aden Cullen MD Consulting Request: Consulting Specialty: Cardiology (and Pulmonary) Consulting Physician: Abena Burgos and Maude Reason for Consult: CHF and COPD exacerbation Hospital Course: 72 year old white female with many comorbidities patient has COPD history of asthma history of lung cancer coronary artery disease status post CO diabetes GERD inflammatory bowel disease osteoarthritis glaucoma has had increased shortness of breath for several days and increased leg edema. This shortness of breath got so bad in the edema that she could not breathe and ended up in the emergency room where she was found to have an elevated BNP. Patient was admitted with an exacerbation of her CHF probably diastolic in origin and a COPD exacerbation. Patient was given IV diuretics IV steroids and respiratory therapy. The patient improved her breathing improved her edema decreased. At one point she started feeling dizzy and orthostatic. The diuretics were decreased and once she was not orthostatic anymore disposition plans were started patient went home improved to follow with all the specialists and myself Complications: None Allergies: Coded Allergies: Penicillins (RASH 01/17/16) aspirin (UNKNOWN 01/17/16) cephalexin (From KEFLEX) (UNKNOWN 01/17/16) codeine (UNKNOWN 01/17/16) latex (RASH 01/17/16) nabumetone (UNKNOWN 01/17/16) Uncoded Allergies: HORSE MEAT (Severe, HIVES 02/03/12) Significant Procedures: SERVICE DATE: 01/30/18 EXAM TYPE: RAD - XRY-PORTABLE CHEST XRAY EXAMINATION: XR PORTABLE CHEST CLINICAL INFORMATION: Dyspnea. Wheezing. COMPARISON: CXR from 10/31/2017 TECHNIQUE: Portable frontal view of the chest was obtained. FINDINGS: There is a right chest wall medication port with IJ catheter terminating in the region of junction of the superior vena cava and right atrium. Patient is slightly rotated into a left posterior oblique position. Cardiac silhouette is mildly enlarged. The opacity in the perihilar region of the left upper lobe is similar in appearance compared to 12/11/2016. Compared to the chest radiograph of 10/31/2017, interval development of diffuse, nonspecific interstitial opacity associated with increased haziness in mid and lower lung zones. However, no overt pleural effusion. No pneumothorax or other significant interval change. IMPRESSION: - Mild cardiomegaly. - Diffuse, nonspecific interstitial opacity in both lungs is new compared to 10/31/2017. This could represent cardiogenic pulmonary edema. However, airway inflammation with multilobar pneumonitis could have a similar appearance. - The left upper lobe opacity from infiltrative lesion, atelectasis and/or fibrosis remains similar in appearance compared to 12/11/2016. SERVICE DATE: 01/31/18- EXAM TYPE: US - US-EXT BILAT VENOUS DOPPLER EXAMINATION: US TRIPLEX OF LOWER EXTREMITIES, BILATERAL CLINICAL INFORMATION: Lower extremity edema. COMPARISON: None TECHNIQUE: Color-flow triplex imaging with spectral analysis and compression Doppler were performed on the lower extremities. FINDINGS: The common femoral vein is compressible and exhibits a normal phasic waveform, bilaterally; this suggests that the iliac veins are widely patent above. Within each proximal thigh, the visualized profunda femoris vein is patent. The visualized greater saphenous veins and saphenofemoral junctions are normal. Superficial femoral vein is patent in the proximal, mid and distal aspect of each thigh. Popliteal vein appears normal to the level of the trifurcation, bilaterally, and the visualized calf veins are unremarkable. No evidence of Collier's cyst. IMPRESSION: No evidence of deep vein thrombosis in either lower extremity. SERVICE DATE: 01/31/18-1400 EXAM TYPE: RAD - XRY-CHEST XRAY, TWO VIEWS EXAMINATION: XR CHEST CLINICAL INFORMATION: Shortness of breath. Lower extremity edema. COMPARISON: 01/30/2018 TECHNIQUE: 2 views of the chest were obtained. FINDINGS: There is a right chest wall medication port with IJ catheter terminating in the region of junction of the superior vena cava and right atrium. The interstitial/septal thickening in both lungs has significantly improved compared to 01/30/2018. Small bilateral pleural effusions are seen on the lateral view. Mild cardiomegaly. Again noted is a chronic, streaky opacity in the perihilar region of the left upper lobe. Skeletal findings include multilevel discovertebral degenerative change of the visualized thoracic and lumbar spine. IMPRESSION: Significant interval decrease in the diffuse interstitial opacity. Findings are suggestive of resolving pulmonary edema. Small bilateral pleural effusions are present. SERVICE DATE: 01/31/18-1259 EXAM TYPE: CARD - ECHOCARDIOGRAM EDDIE SINGER Age: 72 : 1945 Gender: F Exam Date: 01/31/2018 16:40 Exam Location: 1 [address] Ht (in): 64 Wt (lb): 211 BSA: 2.12 BP: 130 / 90 Ordering Physician: Kell Mendoza MD Referring Physician: Lazaro Burgos MD, PhD Technologist: Karly Weiss ZAINA Room Number: 180-02 Indications: Heart failure Rhythm: Sinus Technical Quality: good FINDINGS Left Ventricle Normal left ventricular size, wall thickness and systolic function with no obvious regional wall motion abnormalities. Normal left ventricular diastolic filling pattern for age. The ejection fraction is visually estimated at 80%. Right Ventricle The right ventricle is normal in size and function. Right Atrium The right atrium is normal in size. Left Atrium The left atrium is markedly enlarged. The interatrial septum is intact. Mitral Valve The mitral valve demonstrates mild posterior annular calcification and mild mitral stenosis. There is moderate mitral regurgitation. Aortic Valve Structurally normal aortic valve without significant sclerosis or stenosis. There is moderate aortic regurgitation. Tricuspid Valve The tricuspid valve is normal in structure and function. There is mild tricuspid regurgitation. Pulmonary artery systolic pressure is moderately elevated to 58mmHg. Pulmonic Valve Structurally normal pulmonic valve. There is mild to moderate pulmonic regurgitation. Pericardium Normal pericardium without effusion. No pleural effusion. Great Vessels Normal aortic root dimension. The aortic arch and great vessels are well seen and are normal. CONCLUSIONS 1. Normal EF of 80%. 2. Severe left atrial enlargement. 3. Mild mitral stenosis with moderate mitral regurgitation. 4. Mild tricuspid regurgitation. 5. Moderate aortic regurgitation. 6. Mild to moderate pulmonic regurgitation. 7. Moderate pulmonary hypertension. Lazaro Burgos M.D. Pertinent Lab Results: 01/30/18 0851: Anion Gap 9, Estimated GFR > 60, BUN/Creatinine Ratio 15.0, Glucose 234 H, Calcium 8.5, Troponin I 0.05, CBC w Diff MAN DIFF ORDERED, RBC 4.08 L, MCV 83.7 , MCH 28.2, MCHC 33.7, RDW 15.5 H, MPV 6.8 L, Gran % 87.2 H, Lymphocytes % 9.5 L, Monocytes % 1.6 L, Eosinophils % 1.6, Basophils % 0.1, Absolute Granulocytes 15.2 H, Segmented Neutrophils 80 H, Band Neutrophils 5, Absolute Lymphocytes 1.6, Lymphocytes 11 L, Monocytes 1 L, Absolute Monocytes 0.3, Eosinophils 3, Absolute Eosinophils 0.3, Absolute Basophils 0, Platelet Estimate INCREASED, Hypochromic-Microcytic 1+ 01/30/181954: pH 7.47 H, pCO2 41, pO2 91, HCO3 29 H, ABG O2 Sat (Measured) 97.0, P-50 (Temp Corrected) N, Carboxyhemoglobin 0.3 L, O2 Concentration % 3.5L, Temperature 98.8, O2 Delivery Method NC, Phlebotomy Draw Site RIGHT BRACHIAL 01/30/181934: Troponin I 0.04 01/31/18 0320: Anion Gap 11, Estimated GFR > 60, BUN/Creatinine Ratio 18.3, CBC w Diff MAN DIFF ORDERED, RBC 3.93 L, MCV 83.8, MCH 27.9, MCHC 33.3, RDW 15.6 H, MPV 6.7 L, Gran % 91.8 H, Lymphocytes % 6.5 L, Monocytes % 1.5 L, Eosinophils % 0, Basophils % 0.2, Absolute Granulocytes 8.4 H, Segmented Neutrophils 89 H, Band Neutrophils 1, Absolute Lymphocytes 0.6 L, Lymphocytes 9 L, Monocytes 1 L, Absolute Monocytes 0.1, Absolute Eosinophils 0, Absolute Basophils 0, Platelet Estimate INCREASED, Polychromasia 1+, Basophilic Stippling RARE, Ovalocytes FEW, Fld Total RBCs Counted 100 01/31/18 1130: Troponin I < 0.01 02/02/18 0625: Anion Gap 9, Estimated GFR > 60, BUN/Creatinine Ratio 22.9 01/31/18 0320: Troponin I 0.03 02/02/18 0625: Anion Gap 9, Estimated GFR > 60, BUN/Creatinine Ratio 22.9 Disposition Summary Disposition Principal Diagnosis: CHF exacerbation probably diastolic CHF. COPD exacerbation Orthostatic hypotension. Additional Diagnosis: Diabetes mellitus GERD Lung cancer Bipolar disease IBS Osteoarthritis Glaucoma Discharge Disposition: home health services Discharge Instructions General Discharge Information Code Status: Full Code Patient's Diet: Healthy heart Patient's Activity: As tolerated Follow-Up Instructions/Appts: Follow-up with Dr. Cullen pulmonary and cardiology Medications at Discharge Discharge Medications: Continue taking these medications: Lamotrigine (Lamictal) 200 MG TABLET 1 Tablet ORAL TWICE DAILY Comments: Last Taken: 02/03/18 Time: 9:30 AM Pravastatin Sodium (Pravastatin Sodium) 40 MG TABLET 40 Milligram ORAL DAILY Qty = 30 Pantoprazole Sodium (Pantoprazole Sodium) 40 MG TABLET.DR 40 Milligram ORAL DAILY Qty = 60 Gabapentin (Gabapentin) 300 MG CAPSULE 300 Milligram ORAL TWICE DAILY Qty = 120 Travoprost (Travatan Z) 5 ML DROPS 1 Drop Right Eye Every night Comments: NOT GIVEN Mometasone Furoate (Nasonex) 17 GM SPRAY.PUMP 2 [place] Both sides of nose Every night Comments: Last Taken: 02/03/18 Time: 9:40 AM Fluticasone/Salmeterol (Advair 250-50 Diskus) 1 EACH BLST.W.DEV 1 Puff Inhale through mouth TWICE DAILY Comments: NOT GIVEN Escitalopram Oxalate (Lexapro 10MG) 10 MG TABLET 1 Tablet ORAL DAILY Aspirin (Children's Aspirin) 81 MG TAB.CHEW 1 Tablet ORAL DAILY Cyanocobalamin (Vitamin B-12) 1,000 MCG TABLET 1 Tablet ORAL DAILY Valsartan (Valsartan) 80 MG TABLET 1 Tablet ORAL DAILY Qty = 90 Comments: Last Taken: 02/03/18 Time: 9:40 AM LOSARTAN GIVEN SUBSTITUTE Aripiprazole (Abilify) 10 MG TABLET 1 Tablet ORAL DAILY Qty = 30 Comments: Last Taken: 02/03/18 Time: 9:40 AM Metoprolol Tartrate (Metoprolol Tartrate) 25 MG TABLET 1 Tablet ORAL TWICE DAILY Qty = 108 Comments: Last Taken: 02/03/18 Time: 9:40 AM Lubiprostone (Amitiza) 8 MCG CAPSULE 1 Capsule ORAL TWICE DAILY Qty = 60 Comments: Last Taken: 02/03/18 Time: 9:40 AM Calcium Carbonate/Vitamin D3 (Caltrate 600 + D Tablet) 1 EACH TABLET 1 Tablet ORAL TWICE DAILY Comments: Last Taken: 02/03/18 Time: 9:40 AM Ferrous Sulfate (Iron Supplement) 325 MG TABLET 1 Tablet ORAL DAILY Comments: PER PT MED LIST FROM PREFERRED HOME CARE Albuterol Sulfate (Albuterol Sulfate) 2.5 MG/3 ML VIAL.NEB 1 Vial Inhale Solution Q6H as needed for SOB/WHEEZE Comments: Last Taken: 02/03/18 Time: 10:40 AM Mometasone/Formoterol (Dulera 200 Mcg/5 Mcg Inhaler) 13 GM HFA.AER.AD 2 Puff Inhale through mouth TWICE DAILY Qty = 13 Comments: NOT GIVEN Tamsulosin HCl (Tamsulosin HCl) 0.4 MG CAP.ER.24H 1 Capsule ORAL Every night Qty = 30 Comments: Last Taken: 02/02/18 Time: 8:30 PM Tiotropium [place] (Spiriva) 18 MCG CAP.W.DEV 1 Capsule Inhale through mouth DAILY Qty = 30 Comments: Last Taken: 02/03/18 Time: 9:40 AM Lactobac #2-S. Therm-Bifido #1 (Vsl#3 Packet) 1 EACH PACKET 1 Packet ORAL DAILY Comments: NOT GIVEN Loratadine (Claritin) 10 MG TABLET 1 Tablet ORAL DAILY Comments: Last Taken: 02/03/18 Time: 9:40 AM Diclofenac Sodium (Voltaren) 100 GM GEL..GRAM. 1 Gram On the skin 4 TIMES A DAY Instructions: apply to affected area(s) Comments: Last Taken: 02/03/18 Time: 9:40 AM Nystatin (Nystatin) 100,000 UNIT/1 ML ORAL.SUSP 5 [place]ilit[place] ORAL 4 TIMES A DAY Comments: Last Taken: 02/03/18 Time: 9:40 AM Sucralfate (Carafate) 1 GM TABLET 1 Tablet ORAL THREE TIMES DAILY Comments: Last Taken: 02/03/18 Time: 9:40 AM Albuterol Sulfate (Proair Hfa) 8.5 GM HFA.AER.AD 2 Puff Inhale through mouth Q4H as needed for COPD Comments: NOT GIVEN Chlorhexidine Gluconate (Peridex) 473 ML MOUTHWASH ORAL As Directed Comments: NOT GIVEN Hydrocodone/Acetaminophen ([place] 5-325 Tablet) 1 EACH TABLET 1-2 Tablet ORAL EVERY SIX HOURS NEEDED as needed for PAIN Qty = 20 Comments: VICODIN GIVEN Last Taken: 02/01/18 Time: 2:20 AM Hydromorphone HCl (Dilaudid) 2 MG TABLET 1 Tablet ORAL 2 x Daily as needed as needed for RIB FX Qty = 15 Comments: NOT GIVEN Guaifenesin/Dextromethorphan (Robitussin Cough-Chest Dm Liq) 100 MG-5 MG/5 ML LIQUID 5-10 [place] ORAL EVERY SIX HOURS NEEDED as needed for cough Qty = 240 Comments: NOT GIVEN Start taking the following new medications: Furosemide (Furosemide) 40 MG TABLET 1 Tablet ORAL DAILY Qty = 30 No Refills Comments: Last Taken: 02/03/18 Time: 9:40 AM Copies To: Aden Cullen MD; Loretta POWERS PHD,Lazaro Funez; Ayaz POWERS,Doroteo Attending MD Review Statement Documenting Attending: Aden Cullen MD
== END 2018-02-03 14:30 | disposition home health service (06) | DRG 291 ==
LOC: ERH 08:30 → 1NO 11:03 → ERHI 11:03 → ENRESERV 20:25 → ENTRNSPT 22:27 → EDTRNSPTSTS 22:30 → EDTRNSPT 22:30 → 1NO 22:32 → CMPTRNSPT 22:51 → ENPENDDIS 02-02 10:54 → EDPENDDISTM 02-02 11:06 → ENTRNSPT 02-03 14:12 → EDTRNSPTSTS 02-03 14:25 → EDTRNSPT 02-03 14:25 → 1NO 02-03 14:30 → CMPTRNSPT 02-03 14:45
PROVIDERS: Emergency Medicine; Student in an Organized Health Care Education/Training Program
PROC: 5A09357 Assistance with Respiratory Ventilation, Less than 24 Consecutive Hours, Continuous Positive Airway Pressure (ICD-10-PCS; principal; 2018-01-30)
DX: I11.0 Hypertensive heart disease with heart failure (principal); J96.01 Acute respiratory failure with hypoxia; E87.1 Hypo-osmolality and hyponatremia; J44.1 Chronic obstructive pulmonary disease with (acute) exacerbation; I50.33 Acute on chronic diastolic (congestive) heart failure; Z99.81 Dependence on supplemental oxygen; K21.9 Gastro-esophageal reflux disease without esophagitis; F31.9 Bipolar disorder, unspecified; I25.2 Old myocardial infarction; K58.9 Irritable bowel syndrome, unspecified; H40.9 Unspecified glaucoma; G43.909 Migraine, unspecified, not intractable, without status migrainosus; I95.1 Orthostatic hypotension; Z88.5 Allergy status to narcotic agent; Z92.21 Personal history of antineoplastic chemotherapy; R91.1 Solitary pulmonary nodule; Z85.118 Personal history of other malignant neoplasm of bronchus and lung; E66.3 Overweight; Z96.651 Presence of right artificial knee joint; Z87.891 Personal history of nicotine dependence; Z88.0 Allergy status to penicillin; Z88.1 Allergy status to other antibiotic agents; Z91.018 Allergy to other foods; Z88.8 Allergy status to other drugs, medicaments and biological substances; Z91.040 Latex allergy status
CPT/HCPCS: 1NSP; 36415; 36592; 71045; 71046; 82436; 93005; 93010; 93306; 93970; 96374; 96375; 99291; J0401; J1650; J1940; J2920; J2930